=== PATIENT | male | born 1955 | race Caucasian/White ===

== ENCOUNTER 2016-09-22 22:08 | Emergency (ER) | payer OTHER ==
[~2016-09-22] VITALS: Ht 177.8 cm; Wt 99.8 kg
[~2016-09-22 22:08] MED LIST: ACETAMINOPHEN-1 EAC1 PO; B-1100 MG PO; CAMPRAL333 MG PO; CARDIZEM CD,CA240 MG PO; CARVEDILOL25 MG PO; CELEXA20 MG PO; CELEXA40 MG PO; CHLORDIAZEPOXID25 MG PO; CITALOPRAM HBR20 MG PO; CLONIDINE HCL0.1 MG PO; CYCLOBENZAPRINE 10 M; DESYREL100 MG PO; DISULFIRAM250 MG PO; DOXYCYCLINE HY100 MG PO; FLECAINIDE ACET50 MG PO; FLEXERIL10 MG PO; FOLIC ACID1 MG PO; IBUPROFEN400 MG PO; LEVO-T100 MCG PO; LEVOTHYROXINE100 MCG; LEVOTHYROXINE100 MCG PO; LIBRIUM25 MG PO; LISINOPRIL10 MG PO; LISINOPRIL5 MG PO; LOPRESSOR25 MG PO; Levothroid,Synthroid PO; MELOXICAM15 MG PO; METOPROLOL; METOPROLOL SUCC25 MG PO; METOPROLOL SUCC50 MG PO; METOPROLOL TART25 MG PO; MOBIC15 MG PO; MOBIC7.5 MG PO; Mobic; PREDNISONE10 MG PO; STOMACH MEDICATION; SYNTHROID; SYNTHROID100 MCG PO; THERAGRAN1 TABLET PO; THIAMINE,VITAM100 MG PO; TOPROL XL25 MG PO; TYLENOL WITH C1 EACH; Thiamine,Vitamin B1 PO; VITAMIN B-1100 MG PO; VITAMIN D31000 UNIT PO; XARELTO15 MG PO; XARELTO20 MG PO; ZYVOX600 MG PO; [UNRECOGNIZED DRUG - REMARK]; celeXA PO
[2016-09-23 01:39] VITALS: BP 127/89
== END 2016-09-23 01:40 | disposition home or self-care (01) ==
LOC: EME → EDBD 22:08 → EME 22:08
PROC: 3E0234Z Introduction of Serum, Toxoid and Vaccine into Muscle, Percutaneous Approach (ICD-10-PCS; principal; 2016-09-22)
DX: S00.81XA Abrasion of other part of head, initial encounter (principal); M54.2 Cervicalgia; Y04.2XXA Assault by strike against or bumped into by another person, initial encounter; Y07.59 Other non-family member, perpetrator of maltreatment and neglect; Z23 Encounter for immunization; I10 Essential (primary) hypertension; E03.9 Hypothyroidism, unspecified; Z87.891 Personal history of nicotine dependence
CPT/HCPCS: 70450; 72125; 99281; 99284

== ENCOUNTER 2016-11-21 10:43 | Observation (INO) | payer OTHER ==
[~2016-11-21] VITALS: Ht 177.8 cm; Wt 95.1 kg
[2016-11-21 11:18] LABS: HEMATOCRIT 44.2 % (38.0-50.0); MCHC 33.7 G/DL (30.0-36.0); MEAN PLAT.VOLUME 9.4 uM^3 (9.0-12.4); RBC DIS.WIDTH-CV 13.1 % (11.8-14.6); RBC DIS.WIDTH-SD 47.6 % (39-53); RED BLOOD COUNT 4.51 M/uL (4.00-5.50); WHITE BLOOD COUNT 5.9 K/uL (4.1-10.2)
[2016-11-21 11:27] LABS: PLATELET COUNT 364 K/uL (156-360)
[2016-11-21 11:50] LABS: ANION GAP 14 MEQ/L (2-14); CHLORIDE 102 MEQ/L (99-109); GFR ESTIMATE (CALCULATED) > 59 mL/min/; GLUCOSE 79 mg/dL (70-99); POTASSIUM 4.2 MEQ/L (3.7-5.4); SAMPLE HEMOLYSIS CHECK 0; SAMPLE ICTERIC CHECK 0; SAMPLE LIPEMIA CHECK 0; SODIUM 140 MEQ/L (136-147); TROP-I INTERPRETATION NEGATIVE; TROPONIN-I < 0.01 ng/mL (0.0-0.30); UREA NITROGEN (BUN) 8 mg/dL (9-23)
[2016-11-21 12:41] LABS: SERUM ETHYL ALCOHOL 358 mg/dL
[2016-11-21] MEDS ORDERED: MOBIC15 MG PO (13:30)
[2016-11-21] MEDS ORDERED: CELEXA40 MG PO (13:30)
[2016-11-21 14:00] VITALS: BP 156/88
[2016-11-21 18:00] LABS: TROP-I INTERPRETATION NEGATIVE; TROPONIN-I < 0.01 ng/mL (0.0-0.30)
[2016-11-21 21:00] VITALS: BP 132/84
[2016-11-21 23:37] LABS: TROP-I INTERPRETATION NEGATIVE; TROPONIN-I < 0.01 ng/mL (0.0-0.30)
[2016-11-22 00:55] VITALS: BP 164/98
== END 2016-11-22 10:36 | disposition home or self-care (01) ==
LOC: EME → EDBD 10:43 → EDOF 12:41 → 5WEST 12:41 → EDOF 13:18 → 5WEST 13:44
PROVIDERS: Emergency Medicine; Nurse Practitioner Family
DX: R07.9 Chest pain, unspecified (principal); R55 Syncope and collapse; F10.120 Alcohol abuse with intoxication, uncomplicated; Y90.8 Blood alcohol level of 240 mg/100 ml or more; I48.91 Unspecified atrial fibrillation; E03.9 Hypothyroidism, unspecified; I10 Essential (primary) hypertension
CPT/HCPCS: 71010; 80048; 83735; 84443; 84484; 85027; 93005; 99281; 99285; G0378; G0480

== ENCOUNTER 2017-01-29 13:46 | Emergency (ER) | payer OTHER ==
[~2017-01-29] VITALS: Ht 177.8 cm; Wt 100.0 kg
[2017-01-29 14:28] LABS: EOSINOPHIL (%) 5.4 % (0-5); EOSINOPHIL COUNT 0.3 K/uL (0-0.3); HEMATOCRIT 36.8 % (38.0-50.0); IMMATURE GRANULOCYTE (%) 0.2 % (0.0-0.7); LYMPHOCYTE COUNT 1.5 K/uL (1.0-2.8); MCHC 33.7 G/DL (30.0-36.0); MCV 97.9 FL (86-99); MONOCYTE (%) 10.7 % (3-12); MONOCYTE COUNT 0.6 K/uL (0-0.8); NEUTROPHIL (%) 55.3 % (45-76); PLATELET COUNT 261 K/uL (156-360); RBC DIS.WIDTH-SD 43.4 % (39-53); RED BLOOD COUNT 3.76 M/uL (4.00-5.50); WHITE BLOOD COUNT 5.4 K/uL (4.1-10.2)
[2017-01-29 14:38] LABS: CHLORIDE 102 mEq/L (99-109); POTASSIUM 3.9 mEq/L (3.7-5.4); SODIUM 133 mEq/L (136-147)
[2017-01-29 14:40] LABS: GLUCOSE 81 mg/dL (70-99)
[2017-01-29 14:42] LABS: ANION GAP 9 MEQ/L (2-14)
[2017-01-29 14:43] LABS: SERUM ETHYL ALCOHOL 328 mg/dL
[2017-01-29 14:44] LABS: GFR ESTIMATE (CALCULATED) > 59 mL/min/
[2017-01-29 14:46] LABS: UREA NITROGEN (BUN) 13 mg/dL (9-23)
[2017-01-29 14:47] LABS: SALICYLATE < 5.0 MG/DL (15-30)
[2017-01-29 17:44] LABS: AMPHETAMINE NEGATIVE (500 ng/mL); BARBITURATES NEGATIVE (200 ng/mL); BENZODIAZEPINES NEGATIVE (150 ng/mL); COCAINE NEGATIVE (150 ng/mL); INTERNAL CONTROLS VALID? YES; METHADONE NEGATIVE (200 ng/mL); METHAMPHETAMINE NEGATIVE (500 ng/mL); OPIATES (MORPHINE) NEGATIVE (100 ng/mL); OXYCODONE NEGATIVE (100 ng/mL); PHENCYCLIDINE NEGATIVE (25 ng/mL); PROPOXYPHENE NEGATIVE (300 ng/mL); THC CANNABINOIDS NEGATIVE (50 ng/mL); TRICYCLIC ANTIDEPRESSANTS NEGATIVE (300 ng/mL)
[2017-01-29 21:34] VITALS: BP 110/68
== END 2017-01-29 21:35 | disposition home or self-care (01) ==
LOC: EME 13:46
PROVIDERS: Emergency Medicine
DX: F10.129 Alcohol abuse with intoxication, unspecified (principal); F32.9 Major depressive disorder, single episode, unspecified; R09.02 Hypoxemia; I10 Essential (primary) hypertension; K21.9 Gastro-esophageal reflux disease without esophagitis; I48.91 Unspecified atrial fibrillation; Z79.01 Long term (current) use of anticoagulants; Z59.0 Homelessness; Z86.73 Personal history of transient ischemic attack (TIA), and cerebral infarction without residual deficits
CPT/HCPCS: 80048; 85025; 99281; 99284; G0480

== ENCOUNTER 2017-01-31 12:02 | Inpatient (IN) | payer OTHER ==
[~2017-01-31] VITALS: Ht 177.8 cm; Wt 98.9 kg
[2017-01-31 13:32] LABS: BASOPHIL COUNT 0.1 K/uL (0-0.1); EOSINOPHIL (%) 4.3 % (0-5); EOSINOPHIL COUNT 0.3 K/uL (0-0.3); HEMATOCRIT 41.1 % (38.0-50.0); IMMATURE GRANULOCYTE (%) 0.6 % (0.0-0.7); INSTRUMENT ABS NEUTROPHIL CT 4.4 K/uL; LYMPHOCYTE COUNT 1.7 K/uL (1.0-2.8); MCHC 33.1 G/DL (30.0-36.0); MCV 99.8 FL (86-99); MEAN PLAT.VOLUME 9.8 uM^3 (9.0-12.4); MONOCYTE (%) 7.6 % (3-12); MONOCYTE COUNT 0.5 K/uL (0-0.8); NEUTROPHIL (%) 62.7 % (45-76); NEUTROPHIL COUNT 4.4 K/uL (1.8-6.4); PLATELET COUNT 307 K/uL (156-360); RBC DIS.WIDTH-CV 12.3 % (11.8-14.6); RBC DIS.WIDTH-SD 45.6 % (39-53); RED BLOOD COUNT 4.12 M/uL (4.00-5.50)
[2017-01-31 13:45] LABS: CHLORIDE 103 mEq/L (99-109); SODIUM 138 mEq/L (136-147)
[2017-01-31 13:48] LABS: ANION GAP 11 MEQ/L (2-14)
[2017-01-31 13:50] LABS: TROP-I INTERPRETATION NEGATIVE; TROPONIN-I < 0.01 ng/mL (0.0-0.30)
[2017-01-31 13:51] LABS: GFR ESTIMATE (CALCULATED) > 59 mL/min/; GLUCOSE 114 mg/dL (70-99); POTASSIUM 4.8 mEq/L (3.7-5.4)
[2017-01-31 13:52] LABS: UREA NITROGEN (BUN) 16 mg/dL (9-23)
[2017-01-31 17:55] LABS: SERUM ETHYL ALCOHOL 306 mg/dL
[2017-01-31 18:00] VITALS: BP 126/81
[2017-01-31 18:58] LABS: MAGNESIUM 2.5 mg/dL (1.3-2.7)
[2017-01-31 19:01] LABS: TOTAL BILIRUBIN 0.5 mg/dL (0.0-1.0)
[2017-01-31 19:03] LABS: ALKALINE PHOSPHATASE 67 IU/L (3-129)
[2017-01-31 19:05] LABS: DIRECT BILIRUBIN 0.1 mg/dL (0.0-0.3)
== END 2017-01-31 20:20 | disposition left against medical advice (07) | DRG 894 ==
LOC: EME 12:02 → EDOF 18:03
PROVIDERS: Emergency Medicine
DX: F10.229 Alcohol dependence with intoxication, unspecified (principal); I48.92 Unspecified atrial flutter; E86.0 Dehydration; I10 Essential (primary) hypertension; I48.2 Chronic atrial fibrillation; F17.210 Nicotine dependence, cigarettes, uncomplicated; E03.9 Hypothyroidism, unspecified; K21.9 Gastro-esophageal reflux disease without esophagitis; F41.9 Anxiety disorder, unspecified; Z59.0 Homelessness; Z80.0 Family history of malignant neoplasm of digestive organs; Z82.5 Family history of asthma and other chronic lower respiratory diseases; Z86.711 Personal history of pulmonary embolism; Z86.73 Personal history of transient ischemic attack (TIA), and cerebral infarction without residual deficits; Z91.14 Patient's other noncompliance with medication regimen; Z91.19 Patient's noncompliance with other medical treatment and regimen; Z79.01 Long term (current) use of anticoagulants
CPT/HCPCS: 70450; 71010; 80048; 80076; 80306 90; 83735; 84484; 85025; 93005; 99281; 99285; G0480

== ENCOUNTER 2017-02-01 13:14 | Emergency (ER) | payer OTHER ==
[~2017-02-01] VITALS: Ht 177.8 cm; Wt 98.2 kg
[2017-02-01 14:07] LABS: BASOPHIL COUNT 0.1 K/uL (0-0.1); EOSINOPHIL (%) 4.2 % (0-5); EOSINOPHIL COUNT 0.3 K/uL (0-0.3); HEMATOCRIT 37.1 % (38.0-50.0); IMMATURE GRANULOCYTE (%) 0.7 % (0.0-0.7); INSTRUMENT ABS NEUTROPHIL CT 3.4 K/uL; LYMPHOCYTE COUNT 1.7 K/uL (1.0-2.8); MCHC 33.7 G/DL (30.0-36.0); MCV 97.9 FL (86-99); MEAN PLAT.VOLUME 9.9 uM^3 (9.0-12.4); MONOCYTE COUNT 0.6 K/uL (0-0.8); NEUTROPHIL (%) 55.8 % (45-76); NEUTROPHIL COUNT 3.4 K/uL (1.8-6.4); PLATELET COUNT 279 K/uL (156-360); RBC DIS.WIDTH-CV 12.4 % (11.8-14.6); RBC DIS.WIDTH-SD 44.8 % (39-53); RED BLOOD COUNT 3.79 M/uL (4.00-5.50)
[2017-02-01 14:17] LABS: CHLORIDE 101 mEq/L (99-109); SODIUM 135 mEq/L (136-147)
[2017-02-01 14:19] LABS: GLUCOSE 110 mg/dL (70-99)
[2017-02-01 14:20] LABS: ANION GAP 11 MEQ/L (2-14)
[2017-02-01 14:22] LABS: SERUM ETHYL ALCOHOL 249 mg/dL
[2017-02-01 14:23] LABS: GFR ESTIMATE (CALCULATED) > 59 mL/min/
[2017-02-01 14:24] LABS: UREA NITROGEN (BUN) 11 mg/dL (9-23)
[2017-02-01 14:31] LABS: ADD MIUA? NO; BILIRUBIN NEGATIVE; BLOOD NEGATIVE; COLOR STRAW ((YELLOW)); GLUCOSE (STRIP) NEGATIVE; KETONES NEGATIVE; LEUKOCYTES NEGATIVE; NITRITE NEGATIVE; PROTEIN (STRIP) NEGATIVE; SPECIFIC GRAVITY 1.006 (1.000-1.030); UROBILINOGEN 0.2 MG/DL (0.2-1.0)
[2017-02-01 14:54] LABS: AMPHETAMINE NEGATIVE (500 ng/mL); BARBITURATES NEGATIVE (200 ng/mL); BENZODIAZEPINES NEGATIVE (150 ng/mL); COCAINE NEGATIVE (150 ng/mL); INTERNAL CONTROLS VALID? YES; METHADONE NEGATIVE (200 ng/mL); METHAMPHETAMINE NEGATIVE (500 ng/mL); OPIATES (MORPHINE) NEGATIVE (100 ng/mL); OXYCODONE NEGATIVE (100 ng/mL); PHENCYCLIDINE NEGATIVE (25 ng/mL); PROPOXYPHENE NEGATIVE (300 ng/mL); THC CANNABINOIDS NEGATIVE (50 ng/mL); TRICYCLIC ANTIDEPRESSANTS NEGATIVE (300 ng/mL)
[2017-02-01 21:33] VITALS: BP 128/89
== END 2017-02-01 21:34 | disposition home or self-care (01) ==
LOC: EME 13:14
PROVIDERS: Emergency Medicine
DX: F32.9 Major depressive disorder, single episode, unspecified (principal); R45.851 Suicidal ideations; F10.129 Alcohol abuse with intoxication, unspecified; Y90.8 Blood alcohol level of 240 mg/100 ml or more; Z59.0 Homelessness; I10 Essential (primary) hypertension; F17.200 Nicotine dependence, unspecified, uncomplicated; Z86.73 Personal history of transient ischemic attack (TIA), and cerebral infarction without residual deficits
CPT/HCPCS: 80048; 81003; 85025; 90839; 99281; 99284; G0480

== ENCOUNTER 2017-02-05 09:24 | Emergency (ER) | payer OTHER ==
[~2017-02-05] VITALS: Ht 177.8 cm; Wt 102.9 kg
[2017-02-05 15:20] LABS: HEMATOCRIT 39.7 % (38.0-50.0); MCH 32.8 PG (29.0-34.0); MCHC 33.2 G/DL (30.0-36.0); MCV 98.5 FL (86-99); MEAN PLAT.VOLUME 9.7 uM^3 (9.0-12.4); PLATELET COUNT 203 K/uL (156-360); RBC DIS.WIDTH-CV 12.3 % (11.8-14.6); RBC DIS.WIDTH-SD 44.8 % (39-53); RED BLOOD COUNT 4.03 M/uL (4.00-5.50); WHITE BLOOD COUNT 4.3 K/uL (4.1-10.2)
[2017-02-05 15:28] LABS: CHLORIDE 106 mEq/L (99-109); SODIUM 139 mEq/L (136-147)
[2017-02-05 15:30] VITALS: BP 105/80
[2017-02-05 15:30] LABS: GLUCOSE 81 mg/dL (70-99)
[2017-02-05 15:31] LABS: ANION GAP 12 MEQ/L (2-14)
[2017-02-05 15:33] LABS: SERUM ETHYL ALCOHOL 194 mg/dL
[2017-02-05 15:34] LABS: GFR ESTIMATE (CALCULATED) > 59 mL/min/; UREA NITROGEN (BUN) 8 mg/dL (9-23)
== END 2017-02-05 18:05 | disposition home or self-care (01) ==
LOC: EME 09:24
PROVIDERS: Emergency Medicine
DX: F32.9 Major depressive disorder, single episode, unspecified (principal); F10.129 Alcohol abuse with intoxication, unspecified; I10 Essential (primary) hypertension; K21.9 Gastro-esophageal reflux disease without esophagitis; E03.9 Hypothyroidism, unspecified; Z86.73 Personal history of transient ischemic attack (TIA), and cerebral infarction without residual deficits; F17.200 Nicotine dependence, unspecified, uncomplicated
CPT/HCPCS: 80048; 85027; 99281; 99283; G0480

== ENCOUNTER 2017-02-07 10:38 | Observation (INO) | payer OTHER ==
[~2017-02-07] VITALS: Ht 177.8 cm; Wt 98.6 kg
[2017-02-07 11:58] LABS: BASOPHIL COUNT 0.1 K/uL (0-0.1); EOSINOPHIL (%) 4.6 % (0-5); EOSINOPHIL COUNT 0.2 K/uL (0-0.3); IMMATURE GRANULOCYTE (%) 0.2 % (0.0-0.7); INSTRUMENT ABS NEUTROPHIL CT 2.9 K/uL; MCH 33.2 PG (29.0-34.0); MCHC 33.5 G/DL (30.0-36.0); MCV 99.2 FL (86-99); MEAN PLAT.VOLUME 9.8 uM^3 (9.0-12.4); MONOCYTE (%) 8.4 % (3-12); MONOCYTE COUNT 0.4 K/uL (0-0.8); NEUTROPHIL (%) 63.5 % (45-76); NEUTROPHIL COUNT 2.9 K/uL (1.8-6.4); PLATELET COUNT 179 K/uL (156-360); RBC DIS.WIDTH-CV 12.4 % (11.8-14.6); RBC DIS.WIDTH-SD 45.2 % (39-53); RED BLOOD COUNT 3.73 M/uL (4.00-5.50); WHITE BLOOD COUNT 4.5 K/uL (4.1-10.2)
[2017-02-07 12:06] LABS: PROTHROMBIN TIME 10.3 (9.2-11.2); PTT 27.5 (25-32)
[2017-02-07 12:12] LABS: CHLORIDE 105 mEq/L (99-109); POTASSIUM 4.1 mEq/L (3.7-5.4); SODIUM 134 mEq/L (136-147)
[2017-02-07 12:16] LABS: ANION GAP 9 MEQ/L (2-14)
[2017-02-07 12:17] LABS: SERUM ETHYL ALCOHOL 249 mg/dL
[2017-02-07 12:18] LABS: GFR ESTIMATE (CALCULATED) > 59 mL/min/
[2017-02-07 12:19] LABS: GLUCOSE 116 mg/dL (70-99); MAGNESIUM 1.9 mg/dL (1.3-2.7); UREA NITROGEN (BUN) 10 mg/dL (9-23)
[2017-02-07 12:22] LABS: TROP-I INTERPRETATION NEGATIVE; TROPONIN-I < 0.01 ng/mL (0.0-0.30)
[2017-02-07] MEDS ORDERED: HYDROCODON-ACE1 EAC7 PO (15:58)
[2017-02-07] MEDS ORDERED: CETIRIZINE HCL10 M2 PO (15:58)
[2017-02-07] MEDS ORDERED: FLONASE16 G1 BOTH NARES (15:58)
[2017-02-07 18:09] VITALS: BP 137/83
[2017-02-07 18:12] VITALS: BP 114/86
[2017-02-07 18:14] VITALS: BP 107/72
[2017-02-07 19:32] VITALS: BP 127/96; BP 128/88
[2017-02-07 19:42] VITALS: BP 128/88
[2017-02-07 22:37] LABS: TROP-I INTERPRETATION NEGATIVE; TROPONIN-I < 0.01 ng/mL (0.0-0.30)
[2017-02-08 00:34] VITALS: BP 142/94
[2017-02-08 04:23] LABS: EOSINOPHIL (%) 5.1 % (0-5); EOSINOPHIL COUNT 0.2 K/uL (0-0.3); HEMATOCRIT 39.2 % (38.0-50.0); IMMATURE GRANULOCYTE (%) 0.2 % (0.0-0.7); INSTRUMENT ABS NEUTROPHIL CT 2.5 K/uL; LYMPHOCYTE COUNT 0.9 K/uL (1.0-2.8); MCH 32.8 PG (29.0-34.0); MCHC 33.9 G/DL (30.0-36.0); MCV 96.8 FL (86-99); MEAN PLAT.VOLUME 10.1 uM^3 (9.0-12.4); MONOCYTE (%) 14.3 % (3-12); MONOCYTE COUNT 0.6 K/uL (0-0.8); NEUTROPHIL (%) 58.5 % (45-76); NEUTROPHIL COUNT 2.5 K/uL (1.8-6.4); PLATELET COUNT 198 K/uL (156-360); RBC DIS.WIDTH-CV 12.2 % (11.8-14.6); RBC DIS.WIDTH-SD 43.5 % (39-53); RED BLOOD COUNT 4.05 M/uL (4.00-5.50); WHITE BLOOD COUNT 4.3 K/uL (4.1-10.2)
[2017-02-08 04:43] LABS: CHLORIDE 102 mEq/L (99-109); SODIUM 136 mEq/L (136-147)
[2017-02-08 04:46] LABS: GLUCOSE 93 mg/dL (70-99)
[2017-02-08 04:47] LABS: ANION GAP 10 MEQ/L (2-14); TOTAL BILIRUBIN 1.2 mg/dL (0.0-1.0)
[2017-02-08 04:49] LABS: ALKALINE PHOSPHATASE 80 IU/L (3-129); GFR ESTIMATE (CALCULATED) > 59 mL/min/
[2017-02-08 04:50] VITALS: BP 156/95
[2017-02-08 04:50] LABS: TROP-I INTERPRETATION NEGATIVE; TROPONIN-I < 0.01 ng/mL (0.0-0.30); UREA NITROGEN (BUN) 14 mg/dL (9-23)
[2017-02-08 04:51] LABS: DIRECT BILIRUBIN 0.5 mg/dL (0.0-0.3)
[2017-02-08 08:40] VITALS: BP 172/101
[2017-02-08 11:08] LABS: TROP-I INTERPRETATION NEGATIVE; TROPONIN-I < 0.01 ng/mL (0.0-0.30)
[2017-02-08 11:33] VITALS: BP 144/99
[2017-02-08] MEDS ORDERED: ZITHROMAX Z-PA250 MG PO (12:34)
[2017-02-08] MEDS ORDERED: CARDIZEM CD240 MG PO (14:38)
== END 2017-02-08 15:17 | disposition home or self-care (01) ==
LOC: EME 10:38 → 5WEST 16:42 → EDOF 16:42 → 5WEST 18:05
PROVIDERS: Emergency Medicine; Internal Medicine
DX: R42 Dizziness and giddiness (principal); R55 Syncope and collapse; R06.02 Shortness of breath; R53.1 Weakness; I48.2 Chronic atrial fibrillation; I10 Essential (primary) hypertension; E03.9 Hypothyroidism, unspecified; F32.9 Major depressive disorder, single episode, unspecified; Z79.01 Long term (current) use of anticoagulants; Z86.711 Personal history of pulmonary embolism; F10.20 Alcohol dependence, uncomplicated; Z59.0 Homelessness; F41.9 Anxiety disorder, unspecified; K21.9 Gastro-esophageal reflux disease without esophagitis
CPT/HCPCS: 70551; 71010; 71275; 80048; 80076; 83735; 84443; 84484; 85025; 85610; 85730; 87040; 93005; 93306; 93880; 99281; 99285; G0378; G0480; J1956; J3411; J7030

== ENCOUNTER 2017-02-11 22:58 | Emergency (ER) | payer OTHER ==
[~2017-02-11] VITALS: Ht 177.8 cm; Wt 102.2 kg
[~2017-02-11 22:58] MED LIST changes: +CARDIZEM CD240 MG PO; +CETIRIZINE HCL10 M2 PO; +FLONASE16 G1 BOTH NARES; +HYDROCODON-ACE1 EAC7 PO; +ZITHROMAX Z-PA250 MG PO
[2017-02-11 23:10] VITALS: BP 108/84
== END 2017-02-12 00:40 | disposition left against medical advice (07) ==
LOC: EME 22:58
DX: F10.129 Alcohol abuse with intoxication, unspecified (principal); I10 Essential (primary) hypertension; K21.9 Gastro-esophageal reflux disease without esophagitis; E03.9 Hypothyroidism, unspecified; R56.9 Unspecified convulsions; F32.9 Major depressive disorder, single episode, unspecified; Z86.73 Personal history of transient ischemic attack (TIA), and cerebral infarction without residual deficits; F17.200 Nicotine dependence, unspecified, uncomplicated
CPT/HCPCS: 99281; 99283

== ENCOUNTER 2017-02-14 11:06 | Emergency (ER) | payer OTHER ==
[~2017-02-14] VITALS: Ht 177.8 cm; Wt 98.2 kg
[2017-02-14 12:09] VITALS: BP 117/80
== END 2017-02-14 14:27 | disposition left against medical advice (07) ==
LOC: EME 11:06
DX: R45.851 Suicidal ideations (principal); Z53.21 Procedure and treatment not carried out due to patient leaving prior to being seen by health care provider
CPT/HCPCS: 93005

== ENCOUNTER 2017-02-14 18:55 | Emergency (ER) | payer OTHER ==
[~2017-02-14] VITALS: Ht 177.8 cm; Wt 99.7 kg
[2017-02-14 19:35] LABS: BASOPHIL COUNT 0.1 K/uL (0-0.1); EOSINOPHIL (%) 5.8 % (0-5); EOSINOPHIL COUNT 0.3 K/uL (0-0.3); HEMATOCRIT 34.5 % (38.0-50.0); IMMATURE GRANULOCYTE (%) 0.2 % (0.0-0.7); LYMPHOCYTE COUNT 1.5 K/uL (1.0-2.8); MCH 32.6 PG (29.0-34.0); MCHC 33.3 G/DL (30.0-36.0); MCV 97.7 FL (86-99); MEAN PLAT.VOLUME 9.5 uM^3 (9.0-12.4); MONOCYTE (%) 10.2 % (3-12); MONOCYTE COUNT 0.6 K/uL (0-0.8); PLATELET COUNT 200 K/uL (156-360); RBC DIS.WIDTH-SD 46.3 % (39-53); RED BLOOD COUNT 3.53 M/uL (4.00-5.50); WHITE BLOOD COUNT 5.4 K/uL (4.1-10.2)
[2017-02-14 19:50] LABS: CHLORIDE 106 mEq/L (99-109); POTASSIUM 3.8 mEq/L (3.7-5.4); SODIUM 140 mEq/L (136-147)
[2017-02-14 19:52] LABS: GLUCOSE 82 mg/dL (70-99)
[2017-02-14 19:53] LABS: ANION GAP 12 MEQ/L (2-14)
[2017-02-14 19:55] LABS: SERUM ETHYL ALCOHOL 347 mg/dL
[2017-02-14 19:56] LABS: GFR ESTIMATE (CALCULATED) > 59 mL/min/; UREA NITROGEN (BUN) 9 mg/dL (9-23)
[2017-02-15 08:18] VITALS: BP 122/87
== END 2017-02-15 08:35 | disposition home or self-care (01) ==
LOC: EME 18:55
PROVIDERS: Emergency Medicine
DX: F10.229 Alcohol dependence with intoxication, unspecified (principal); F32.9 Major depressive disorder, single episode, unspecified; R45.851 Suicidal ideations; F34.1 Dysthymic disorder; Y90.8 Blood alcohol level of 240 mg/100 ml or more; E03.9 Hypothyroidism, unspecified; I10 Essential (primary) hypertension; Z87.891 Personal history of nicotine dependence
CPT/HCPCS: 80048; 85025; 90839; 99281; 99285; G0480; J2405; J7030

== ENCOUNTER 2017-02-16 12:56 | Emergency (ER) | payer OTHER ==
[~2017-02-16] VITALS: Ht 177.8 cm; Wt 100.5 kg
[2017-02-16 13:04] VITALS: BP 103/88
[2017-02-16 14:43] LABS: POINT-OF-CARE METER ID UU13113702; POINT-OF-CARE USER ID NUTJLF39
== END 2017-02-16 16:10 | disposition left against medical advice (07) ==
LOC: EME 12:56
PROVIDERS: Emergency Medicine
DX: F10.129 Alcohol abuse with intoxication, unspecified (principal); I10 Essential (primary) hypertension; E03.9 Hypothyroidism, unspecified; Z87.891 Personal history of nicotine dependence
CPT/HCPCS: 82948; 99281; 99283

== ENCOUNTER → 2017-02-17 12:41 | Emergency (ER) | payer OTHER ==
[~2017-02-17] VITALS: Ht 177.8 cm; Wt 101.8 kg
[~2017-02-17 12:41] MED LIST changes: +PEN-VEE K,VEET500 MG PO
[2017-02-17 12:49] VITALS: BP 121/83
== END | disposition left against medical advice (07) ==
LOC: EME 12:41
DX: Z04.71 Encounter for examination and observation following alleged adult physical abuse (principal); S01.21XA Laceration without foreign body of nose, initial encounter; Y04.2XXA Assault by strike against or bumped into by another person, initial encounter; F10.99 Alcohol use, unspecified with unspecified alcohol-induced disorder; Z79.01 Long term (current) use of anticoagulants; Z53.21 Procedure and treatment not carried out due to patient leaving prior to being seen by health care provider

== ENCOUNTER 2017-02-19 16:19 | Emergency (ER) | payer OTHER ==
[~2017-02-19] VITALS: Ht 177.8 cm; Wt 88.9 kg
[~2017-02-19 16:19] MED LIST changes: -PEN-VEE K,VEET500 MG PO
[2017-02-19 18:08] LABS: HEMATOCRIT 34.9 % (38.0-50.0); MCH 32.8 PG (29.0-34.0); MCV 99.4 FL (86-99); MEAN PLAT.VOLUME 9.2 uM^3 (9.0-12.4); PLATELET COUNT 234 K/uL (156-360); RBC DIS.WIDTH-CV 13.3 % (11.8-14.6); RED BLOOD COUNT 3.51 M/uL (4.00-5.50); WHITE BLOOD COUNT 4.3 K/uL (4.1-10.2)
[2017-02-19 18:15] LABS: CHLORIDE 107 mEq/L (99-109); POTASSIUM 4.2 mEq/L (3.7-5.4); SODIUM 142 mEq/L (136-147)
[2017-02-19 18:18] LABS: GLUCOSE 77 mg/dL (70-99)
[2017-02-19 18:19] LABS: ANION GAP 10 MEQ/L (2-14)
[2017-02-19 18:20] LABS: TOTAL BILIRUBIN 0.4 mg/dL (0.0-1.0)
[2017-02-19 18:21] LABS: ALKALINE PHOSPHATASE 95 IU/L (3-129); SERUM ETHYL ALCOHOL 242 mg/dL
[2017-02-19 18:22] LABS: GFR ESTIMATE (CALCULATED) > 59 mL/min/
[2017-02-19 18:23] LABS: UREA NITROGEN (BUN) 10 mg/dL (9-23)
[2017-02-19 18:45] LABS: ADD MIUA? NO; BILIRUBIN NEGATIVE; BLOOD NEGATIVE; COLOR STRAW ((YELLOW)); GLUCOSE (STRIP) NEGATIVE; KETONES NEGATIVE; LEUKOCYTES NEGATIVE; NITRITE NEGATIVE; PROTEIN (STRIP) NEGATIVE; SPECIFIC GRAVITY 1.004 (1.000-1.030); UROBILINOGEN 0.2 MG/DL (0.2-1.0)
[2017-02-19 19:04] LABS: ADD MEDTOX COMMENT Y; AMPHETAMINE NEGATIVE (500 ng/mL); BARBITURATES NEGATIVE (200 ng/mL); BENZODIAZEPINES PRESUMPTIVE POSITIVE (150 ng/mL); COCAINE NEGATIVE (150 ng/mL); INTERNAL CONTROLS VALID? YES; METHADONE NEGATIVE (200 ng/mL); METHAMPHETAMINE NEGATIVE (500 ng/mL); OPIATES (MORPHINE) NEGATIVE (100 ng/mL); OXYCODONE NEGATIVE (100 ng/mL); PHENCYCLIDINE NEGATIVE (25 ng/mL); PROPOXYPHENE NEGATIVE (300 ng/mL); THC CANNABINOIDS NEGATIVE (50 ng/mL); TRICYCLIC ANTIDEPRESSANTS NEGATIVE (300 ng/mL)
[2017-02-19 19:32] LABS: BENZODIAZEPINES QUANT VALUE 0 NG/ML; BENZODIAZEPINES, URINE SCREEN Negative (200 ng/mL)
[2017-02-20 00:38] VITALS: BP 131/107
== END 2017-02-20 00:47 | disposition home or self-care (01) ==
LOC: EME 16:19
PROVIDERS: Emergency Medicine
DX: F10.129 Alcohol abuse with intoxication, unspecified (principal); Y90.8 Blood alcohol level of 240 mg/100 ml or more; R45.851 Suicidal ideations; I10 Essential (primary) hypertension; K21.9 Gastro-esophageal reflux disease without esophagitis; Z86.73 Personal history of transient ischemic attack (TIA), and cerebral infarction without residual deficits; Z87.891 Personal history of nicotine dependence; Z59.0 Homelessness
CPT/HCPCS: 80053; 81003; 84999; 85027; 90839; 99281; 99285; G0480

== ENCOUNTER 2017-02-22 21:14 | Emergency (ER) | payer OTHER ==
[~2017-02-22] VITALS: Ht 177.8 cm; Wt 95.4 kg
[2017-02-22 22:17] LABS: HEMATOCRIT 34.3 % (38.0-50.0); MCHC 33.5 G/DL (30.0-36.0); MCV 98.6 FL (86-99); MEAN PLAT.VOLUME 9.3 uM^3 (9.0-12.4); PLATELET COUNT 218 K/uL (156-360); RBC DIS.WIDTH-CV 13.2 % (11.8-14.6); RBC DIS.WIDTH-SD 47.4 % (39-53); RED BLOOD COUNT 3.48 M/uL (4.00-5.50)
[2017-02-22 22:28] LABS: CHLORIDE 102 mEq/L (99-109); POTASSIUM 3.9 mEq/L (3.7-5.4)
[2017-02-22 22:30] LABS: GLUCOSE 108 mg/dL (70-99)
[2017-02-22 22:31] LABS: ANION GAP 10 MEQ/L (2-14)
[2017-02-22 22:33] LABS: GFR ESTIMATE (CALCULATED) > 59 mL/min/
[2017-02-22 22:34] LABS: UREA NITROGEN (BUN) 10 mg/dL (9-23)
[2017-02-22 22:37] LABS: SODIUM 134 mEq/L (136-147)
[2017-02-23] MEDS ORDERED: PEN-VEE K,VEET500 MG PO (03:00)
[2017-02-23 03:08] VITALS: BP 115/84
[2017-02-24] MEDS ORDERED: PEN-VEE K,VEET500 MG PO (19:36)
== END 2017-02-23 03:12 | disposition home or self-care (01) ==
LOC: EME 21:14
PROVIDERS: Physician Assistant
DX: F10.229 Alcohol dependence with intoxication, unspecified (principal); F32.9 Major depressive disorder, single episode, unspecified; Z59.0 Homelessness; Z87.891 Personal history of nicotine dependence; I10 Essential (primary) hypertension; Z86.73 Personal history of transient ischemic attack (TIA), and cerebral infarction without residual deficits; E03.9 Hypothyroidism, unspecified; F19.10 Other psychoactive substance abuse, uncomplicated; J30.1 Allergic rhinitis due to pollen; I48.91 Unspecified atrial fibrillation
CPT/HCPCS: 80048; 81003; 85027; 99281; 99284; G0480

== ENCOUNTER 2017-02-23 15:48 | Emergency (ER) | payer OTHER ==
[~2017-02-23] VITALS: Ht 177.8 cm; Wt 97.7 kg
[~2017-02-23 15:48] MED LIST changes: +PEN-VEE K,VEET500 MG PO
[2017-02-23 16:11] VITALS: BP 103/75
[2017-02-24] MEDS ORDERED: PEN-VEE K,VEET500 MG PO (19:36)
== END 2017-02-23 17:58 | disposition left against medical advice (07) ==
LOC: EME 15:48
DX: K08.89 Other specified disorders of teeth and supporting structures (principal); Z72.89 Other problems related to lifestyle
CPT/HCPCS: 99281; 99283

== ENCOUNTER 2017-02-24 18:37 | Emergency (ER) | payer OTHER ==
[~2017-02-24] VITALS: Ht 177.8 cm; Wt 100.0 kg
[2017-02-24] MEDS ORDERED: PEN-VEE K,VEET500 MG PO (19:36)
[2017-02-24 20:08] VITALS: BP 97/64
== END 2017-02-24 20:09 | disposition home or self-care (01) ==
LOC: EME 18:37
DX: K02.9 Dental caries, unspecified (principal); K08.89 Other specified disorders of teeth and supporting structures; S00.451A Superficial foreign body of right ear, initial encounter
CPT/HCPCS: 99281; 99283

== ENCOUNTER 2017-02-25 18:56 | Emergency (ER) | payer OTHER ==
[~2017-02-25] VITALS: Ht 177.8 cm; Wt 103.0 kg
[2017-02-25 19:34] LABS: HEMATOCRIT 39.1 % (38.0-50.0); MCH 32.7 PG (29.0-34.0); MEAN PLAT.VOLUME 9.2 uM^3 (9.0-12.4); PLATELET COUNT 236 K/uL (156-360); RBC DIS.WIDTH-CV 13.4 % (11.8-14.6); RBC DIS.WIDTH-SD 49.4 % (39-53); RED BLOOD COUNT 3.95 M/uL (4.00-5.50); WHITE BLOOD COUNT 5.6 K/uL (4.1-10.2)
[2017-02-25 19:46] LABS: CHLORIDE 105 mEq/L (99-109); POTASSIUM 3.9 mEq/L (3.7-5.4); SODIUM 138 mEq/L (136-147)
[2017-02-25 19:48] LABS: GLUCOSE 91 mg/dL (70-99)
[2017-02-25 19:49] LABS: ANION GAP 11 MEQ/L (2-14)
[2017-02-25 19:52] LABS: GFR ESTIMATE (CALCULATED) > 59 mL/min/
[2017-02-25 19:53] LABS: UREA NITROGEN (BUN) 8 mg/dL (9-23)
[2017-02-25 19:54] LABS: TROP-I INTERPRETATION NEGATIVE; TROPONIN-I < 0.01 ng/mL (0.0-0.30)
[2017-02-25 21:15] VITALS: BP 112/65
== END 2017-02-25 21:16 | disposition home or self-care (01) ==
LOC: EME 18:56
DX: F10.129 Alcohol abuse with intoxication, unspecified (principal); I10 Essential (primary) hypertension; F32.9 Major depressive disorder, single episode, unspecified; Z86.73 Personal history of transient ischemic attack (TIA), and cerebral infarction without residual deficits
CPT/HCPCS: 71020; 80048; 84484; 85027; 93005; 99281; 99285

== ENCOUNTER 2017-02-26 12:31 | Emergency (ER) | payer OTHER ==
[~2017-02-26] VITALS: Ht 177.8 cm; Wt 97.3 kg
[2017-02-26 17:16] VITALS: BP 122/78
== END 2017-02-26 17:19 | disposition home or self-care (01) ==
LOC: EME 12:31
DX: F10.229 Alcohol dependence with intoxication, unspecified (principal); I10 Essential (primary) hypertension; I48.91 Unspecified atrial fibrillation; K21.9 Gastro-esophageal reflux disease without esophagitis; E03.9 Hypothyroidism, unspecified; F41.9 Anxiety disorder, unspecified; F32.9 Major depressive disorder, single episode, unspecified; Z86.73 Personal history of transient ischemic attack (TIA), and cerebral infarction without residual deficits; Z59.0 Homelessness
CPT/HCPCS: 99281; 99284

== ENCOUNTER 2017-02-27 15:29 | Emergency (ER) | payer OTHER ==
[~2017-02-27] VITALS: Ht 177.8 cm; Wt 98.3 kg
[2017-02-27 16:09] LABS: HEMATOCRIT 37.1 % (38.0-50.0); MCH 32.8 PG (29.0-34.0); MCHC 33.4 G/DL (30.0-36.0); MCV 98.1 FL (86-99); PLATELET COUNT 246 K/uL (156-360); RBC DIS.WIDTH-CV 13.4 % (11.8-14.6); RBC DIS.WIDTH-SD 48.4 % (39-53); RED BLOOD COUNT 3.78 M/uL (4.00-5.50); WHITE BLOOD COUNT 5.6 K/uL (4.1-10.2)
[2017-02-27 16:15] LABS: CHLORIDE 105 mEq/L (99-109); SODIUM 136 mEq/L (136-147)
[2017-02-27 16:17] LABS: GLUCOSE 103 mg/dL (70-99)
[2017-02-27 16:19] VITALS: BP 111/62
[2017-02-27 16:19] LABS: ANION GAP 11 MEQ/L (2-14)
[2017-02-27 16:20] LABS: SERUM ETHYL ALCOHOL 289 mg/dL
[2017-02-27 16:21] LABS: GFR ESTIMATE (CALCULATED) > 59 mL/min/
[2017-02-27 16:22] LABS: UREA NITROGEN (BUN) 15 mg/dL (9-23)
== END 2017-02-27 16:21 | disposition left against medical advice (07) ==
LOC: EME 15:29
PROVIDERS: Emergency Medicine
DX: F10.129 Alcohol abuse with intoxication, unspecified (principal); Y90.8 Blood alcohol level of 240 mg/100 ml or more; F32.9 Major depressive disorder, single episode, unspecified; I10 Essential (primary) hypertension; Z86.73 Personal history of transient ischemic attack (TIA), and cerebral infarction without residual deficits
CPT/HCPCS: 80048; 85027; 99281; 99284; G0480

== ENCOUNTER 2017-02-28 19:22 | Emergency (ER) | payer OTHER ==
[~2017-02-28] VITALS: Ht 177.8 cm; Wt 96.4 kg
[2017-02-28 21:00] LABS: HEMATOCRIT 34.3 % (38.0-50.0); MCH 33.1 PG (29.0-34.0); MCHC 34.1 G/DL (30.0-36.0); MCV 97.2 FL (86-99); MEAN PLAT.VOLUME 8.9 uM^3 (9.0-12.4); PLATELET COUNT 198 K/uL (156-360); RBC DIS.WIDTH-CV 13.2 % (11.8-14.6); RBC DIS.WIDTH-SD 46.7 % (39-53); RED BLOOD COUNT 3.53 M/uL (4.00-5.50); WHITE BLOOD COUNT 5.2 K/uL (4.1-10.2)
[2017-02-28 21:11] LABS: CHLORIDE 104 mEq/L (99-109); POTASSIUM 3.6 mEq/L (3.7-5.4); SODIUM 136 mEq/L (136-147)
[2017-02-28 21:13] LABS: GLUCOSE 88 mg/dL (70-99)
[2017-02-28 21:14] LABS: ANION GAP 12 MEQ/L (2-14)
[2017-02-28 21:16] LABS: SERUM ETHYL ALCOHOL 314 mg/dL
[2017-02-28 21:17] LABS: GFR ESTIMATE (CALCULATED) > 59 mL/min/
[2017-02-28 21:18] LABS: UREA NITROGEN (BUN) 13 mg/dL (9-23)
[2017-03-01 00:22] LABS: COCAINE NEGATIVE (150 ng/mL); METHAMPHETAMINE NEGATIVE (500 ng/mL); OPIATES (MORPHINE) NEGATIVE (100 ng/mL); PHENCYCLIDINE NEGATIVE (25 ng/mL); THC CANNABINOIDS NEGATIVE (50 ng/mL)
[2017-03-01 00:23] LABS: AMPHETAMINE NEGATIVE (500 ng/mL); BARBITURATES NEGATIVE (200 ng/mL); BENZODIAZEPINES NEGATIVE (150 ng/mL); INTERNAL CONTROLS VALID? YES; METHADONE NEGATIVE (200 ng/mL); OXYCODONE NEGATIVE (100 ng/mL); PROPOXYPHENE NEGATIVE (300 ng/mL); TRICYCLIC ANTIDEPRESSANTS NEGATIVE (300 ng/mL)
[2017-03-01 06:19] VITALS: BP 108/67
== END 2017-03-01 06:20 | disposition home or self-care (01) ==
LOC: EME 19:22
PROVIDERS: Emergency Medicine
DX: F10.229 Alcohol dependence with intoxication, unspecified (principal); Y90.8 Blood alcohol level of 240 mg/100 ml or more; F43.21 Adjustment disorder with depressed mood; I48.91 Unspecified atrial fibrillation; Z79.01 Long term (current) use of anticoagulants; I10 Essential (primary) hypertension; K21.9 Gastro-esophageal reflux disease without esophagitis; Z86.73 Personal history of transient ischemic attack (TIA), and cerebral infarction without residual deficits; F41.9 Anxiety disorder, unspecified; F32.9 Major depressive disorder, single episode, unspecified; E03.9 Hypothyroidism, unspecified
CPT/HCPCS: 80048; 85027; 90839; 99281; 99285; G0480

== ENCOUNTER 2017-03-01 14:58 | Emergency (ER) | payer OTHER ==
[~2017-03-01] VITALS: Ht 175.3 cm; Wt 96.0 kg
[2017-03-01 15:23] LABS: BASOPHIL COUNT 0.1 K/uL (0-0.1); EOSINOPHIL (%) 4.1 % (0-5); EOSINOPHIL COUNT 0.2 K/uL (0-0.3); HEMATOCRIT 35.9 % (38.0-50.0); IMMATURE GRANULOCYTE (%) 0.4 % (0.0-0.7); INSTRUMENT ABS NEUTROPHIL CT 3.5 K/uL; LYMPHOCYTE COUNT 1.3 K/uL (1.0-2.8); MCH 33.6 PG (29.0-34.0); MCHC 34.3 G/DL (30.0-36.0); MCV 98.1 FL (86-99); MONOCYTE (%) 8.5 % (3-12); MONOCYTE COUNT 0.5 K/uL (0-0.8); NEUTROPHIL (%) 62.7 % (45-76); NEUTROPHIL COUNT 3.5 K/uL (1.8-6.4); PLATELET COUNT 206 K/uL (156-360); RBC DIS.WIDTH-CV 13.2 % (11.8-14.6); RBC DIS.WIDTH-SD 47.7 % (39-53); RED BLOOD COUNT 3.66 M/uL (4.00-5.50); WHITE BLOOD COUNT 5.6 K/uL (4.1-10.2)
[2017-03-01 15:34] LABS: CHLORIDE 105 mEq/L (99-109); POTASSIUM 3.7 mEq/L (3.7-5.4); SODIUM 138 mEq/L (136-147)
[2017-03-01 15:37] LABS: ANION GAP 12 MEQ/L (2-14)
[2017-03-01 15:38] LABS: SERUM ETHYL ALCOHOL 339 mg/dL
[2017-03-01 15:39] LABS: GFR ESTIMATE (CALCULATED) > 59 mL/min/
[2017-03-01 15:40] LABS: UREA NITROGEN (BUN) 10 mg/dL (9-23)
[2017-03-01 15:41] LABS: GLUCOSE 115 mg/dL (70-99)
[2017-03-01 16:54] LABS: ADD MIUA? NO; BILIRUBIN NEGATIVE; BLOOD NEGATIVE; COLOR YELLOW ((YELLOW)); GLUCOSE (STRIP) NEGATIVE; KETONES NEGATIVE; LEUKOCYTES NEGATIVE; NITRITE NEGATIVE; PROTEIN (STRIP) NEGATIVE; SPECIFIC GRAVITY 1.005 (1.000-1.030); UROBILINOGEN 0.2 MG/DL (0.2-1.0)
[2017-03-01 17:07] LABS: AMPHETAMINE NEGATIVE (500 ng/mL); BARBITURATES NEGATIVE (200 ng/mL); BENZODIAZEPINES NEGATIVE (150 ng/mL); COCAINE NEGATIVE (150 ng/mL); INTERNAL CONTROLS VALID? YES; METHADONE NEGATIVE (200 ng/mL); METHAMPHETAMINE NEGATIVE (500 ng/mL); OPIATES (MORPHINE) NEGATIVE (100 ng/mL); OXYCODONE NEGATIVE (100 ng/mL); PHENCYCLIDINE NEGATIVE (25 ng/mL); PROPOXYPHENE NEGATIVE (300 ng/mL); THC CANNABINOIDS NEGATIVE (50 ng/mL); TRICYCLIC ANTIDEPRESSANTS NEGATIVE (300 ng/mL)
[2017-03-02 01:48] VITALS: BP 129/83
== END 2017-03-02 01:49 | disposition home or self-care (01) ==
LOC: EME 14:58
PROVIDERS: Emergency Medicine
DX: F10.20 Alcohol dependence, uncomplicated (principal); F34.1 Dysthymic disorder; Y90.8 Blood alcohol level of 240 mg/100 ml or more; I10 Essential (primary) hypertension; K21.9 Gastro-esophageal reflux disease without esophagitis; Z86.73 Personal history of transient ischemic attack (TIA), and cerebral infarction without residual deficits
CPT/HCPCS: 80048; 81003; 85025; 90837; 99281; 99285; G0480

== ENCOUNTER 2017-03-02 18:33 | Emergency (ER) | payer OTHER ==
[~2017-03-02] VITALS: Ht 177.8 cm; Wt 100.0 kg
[2017-03-02 19:01] LABS: AMPHETAMINE NEGATIVE (500 ng/mL); BENZODIAZEPINES PRESUMPTIVE POSITIVE (150 ng/mL); COCAINE NEGATIVE (150 ng/mL); METHADONE NEGATIVE (200 ng/mL); METHAMPHETAMINE NEGATIVE (500 ng/mL); OPIATES (MORPHINE) NEGATIVE (100 ng/mL); PHENCYCLIDINE NEGATIVE (25 ng/mL); THC CANNABINOIDS NEGATIVE (50 ng/mL); TRICYCLIC ANTIDEPRESSANTS NEGATIVE (300 ng/mL)
[2017-03-02 19:02] LABS: ADD MEDTOX COMMENT Y; BARBITURATES NEGATIVE (200 ng/mL); INTERNAL CONTROLS VALID? YES; OXYCODONE NEGATIVE (100 ng/mL); PROPOXYPHENE NEGATIVE (300 ng/mL)
[2017-03-02 19:30] LABS: BENZODIAZEPINES QUANT VALUE 0 NG/ML; BENZODIAZEPINES, URINE SCREEN Negative (200 ng/mL)
[2017-03-02 20:42] LABS: HEMATOCRIT 36.6 % (38.0-50.0); MCH 33.1 PG (29.0-34.0); MCHC 33.6 G/DL (30.0-36.0); MCV 98.4 FL (86-99); MEAN PLAT.VOLUME 9.4 uM^3 (9.0-12.4); PLATELET COUNT 189 K/uL (156-360); RBC DIS.WIDTH-CV 13.2 % (11.8-14.6); RBC DIS.WIDTH-SD 47.9 % (39-53); RED BLOOD COUNT 3.72 M/uL (4.00-5.50); WHITE BLOOD COUNT 4.3 K/uL (4.1-10.2)
[2017-03-02 20:54] LABS: CHLORIDE 107 mEq/L (99-109); SODIUM 140 mEq/L (136-147)
[2017-03-02 20:57] LABS: ANION GAP 10 MEQ/L (2-14)
[2017-03-02 20:59] LABS: SERUM ETHYL ALCOHOL 239 mg/dL
[2017-03-02 21:00] LABS: GFR ESTIMATE (CALCULATED) > 59 mL/min/
[2017-03-02 21:01] LABS: UREA NITROGEN (BUN) 8 mg/dL (9-23)
[2017-03-02 21:06] LABS: GLUCOSE 84 mg/dL (70-99)
[2017-03-03 03:41] VITALS: BP 127/84
== END 2017-03-03 03:42 | disposition home or self-care (01) ==
LOC: EME 18:33
DX: F10.129 Alcohol abuse with intoxication, unspecified (principal); R45.851 Suicidal ideations; Z04.6 Encounter for general psychiatric examination, requested by authority
CPT/HCPCS: 80048; 84999; 85027; 90837; 99281; 99285; G0480

== ENCOUNTER 2017-03-04 15:34 | Inpatient (IN) | payer OTHER ==
[~2017-03-04] VITALS: Ht 177.8 cm; Wt 94.4 kg
[2017-03-04 17:19] LABS: HEMATOCRIT 35.2 % (38.0-50.0); MCH 33.3 PG (29.0-34.0); MCHC 34.1 G/DL (30.0-36.0); MCV 97.8 FL (86-99); MEAN PLAT.VOLUME 9.8 uM^3 (9.0-12.4); PLATELET COUNT 180 K/uL (156-360); RBC DIS.WIDTH-SD 47.3 % (39-53); WHITE BLOOD COUNT 4.2 K/uL (4.1-10.2)
[2017-03-04 17:55] LABS: CHLORIDE 103 mEq/L (99-109); POTASSIUM 3.9 mEq/L (3.7-5.4); SODIUM 135 mEq/L (136-147)
[2017-03-04 17:57] LABS: GLUCOSE 100 mg/dL (70-99)
[2017-03-04 17:58] LABS: ANION GAP 10 MEQ/L (2-14)
[2017-03-04 18:00] LABS: GFR ESTIMATE (CALCULATED) > 59 mL/min/; SERUM ETHYL ALCOHOL 269 mg/dL
[2017-03-04 18:01] LABS: UREA NITROGEN (BUN) 8 mg/dL (9-23)
[2017-03-04 21:41] LABS: AMPHETAMINE NEGATIVE (500 ng/mL); BARBITURATES NEGATIVE (200 ng/mL); BENZODIAZEPINES NEGATIVE (150 ng/mL); COCAINE NEGATIVE (150 ng/mL); INTERNAL CONTROLS VALID? YES; METHADONE NEGATIVE (200 ng/mL); METHAMPHETAMINE NEGATIVE (500 ng/mL); OPIATES (MORPHINE) NEGATIVE (100 ng/mL); OXYCODONE NEGATIVE (100 ng/mL); PHENCYCLIDINE NEGATIVE (25 ng/mL); PROPOXYPHENE NEGATIVE (300 ng/mL); THC CANNABINOIDS NEGATIVE (50 ng/mL); TRICYCLIC ANTIDEPRESSANTS NEGATIVE (300 ng/mL)
[2017-03-05 14:52] VITALS: BP 147/98
[2017-03-05 15:29] VITALS: BP 147/98
[2017-03-05] MEDS ORDERED: CELEXA40 MG PO (15:40)
[2017-03-05] MEDS ORDERED: METOPROLOL SUCC50 MG PO (15:41)
[2017-03-05] MEDS ORDERED: CARDIZEM CD,CA240 MG PO (15:43)
[2017-03-05] MEDS ORDERED: LEVO-T100 MCG PO (15:45)
[2017-03-05] MEDS ORDERED: MOBIC15 MG PO (15:46)
[2017-03-05] MEDS ORDERED: ALLERGY RELIEF10 M5 PO (15:48)
[2017-03-05] MEDS ORDERED: FLONASE16 G1 ALT NARES (15:50)
[2017-03-06 07:32] VITALS: BP 155/96
[2017-03-06 11:21] VITALS: BP 114/69
[2017-03-06 16:22] VITALS: BP 108/64
[2017-03-07 07:56] VITALS: BP 157/90
[2017-03-07 11:38] VITALS: BP 135/86
[2017-03-07 15:33] VITALS: BP 135/71
[2017-03-08 07:43] VITALS: BP 143/90
[2017-03-08 15:22] VITALS: BP 126/74
[2017-03-09 07:44] VITALS: BP 138/72
[2017-03-09] MEDS ORDERED: Thiamine,Vitamin B1 PO (12:58)
[2017-03-09] MEDS ORDERED: XARELTO20 MG PO (12:58)
[2017-03-09] MEDS ORDERED: FOLIC ACID1 MG PO (12:58)
== END 2017-03-09 14:50 | disposition home or self-care (01) | DRG 881 ==
LOC: EME 15:34 → 1WEST 03-05 14:09 → EDOF 03-05 14:09 → 1WEST 03-05 14:39
PROVIDERS: Emergency Medicine
DX: F32.9 Major depressive disorder, single episode, unspecified (principal); E03.9 Hypothyroidism, unspecified; I10 Essential (primary) hypertension; I48.91 Unspecified atrial fibrillation; F41.9 Anxiety disorder, unspecified; R45.851 Suicidal ideations; K21.9 Gastro-esophageal reflux disease without esophagitis; Z59.0 Homelessness; Z86.73 Personal history of transient ischemic attack (TIA), and cerebral infarction without residual deficits
CPT/HCPCS: 80048; 85027; 90839; 99281; 99285; G0480

== ENCOUNTER 2017-05-18 15:12 | Emergency (ER) | payer OTHER ==
[~2017-05-18] VITALS: Ht 177.8 cm; Wt 99.8 kg
[~2017-05-18 15:12] MED LIST changes: +ALLERGY RELIEF10 M5 PO; +FLONASE16 G1 ALT NARES
[2017-05-18 16:00] LABS: HEMATOCRIT 39.2 % (38.0-50.0); MCH 32.7 PG (29.0-34.0); MCHC 33.2 G/DL (30.0-36.0); MCV 98.5 FL (86-99); MEAN PLAT.VOLUME 9.6 uM^3 (9.0-12.4); PLATELET COUNT 304 K/uL (156-360); RBC DIS.WIDTH-CV 14.3 % (11.8-14.6); RBC DIS.WIDTH-SD 52.1 % (39-53); RED BLOOD COUNT 3.98 M/uL (4.00-5.50)
[2017-05-18 16:07] LABS: CHLORIDE 105 mEq/L (99-109); POTASSIUM 4.4 mEq/L (3.7-5.4); SODIUM 137 mEq/L (136-147)
[2017-05-18 16:08] LABS: GLUCOSE 58 mg/dL (70-99)
[2017-05-18 16:10] LABS: ANION GAP 15 MEQ/L (2-14)
[2017-05-18 16:12] LABS: GFR ESTIMATE (CALCULATED) > 59 mL/min/; SERUM ETHYL ALCOHOL 273 mg/dL
[2017-05-18 16:13] LABS: UREA NITROGEN (BUN) 18 mg/dL (9-23)
[2017-05-18 16:18] LABS: TROP-I INTERPRETATION NEGATIVE; TROPONIN-I < 0.01 ng/mL (0.0-0.30)
[2017-05-18 18:53] LABS: TROP-I INTERPRETATION NEGATIVE; TROPONIN-I < 0.01 ng/mL (0.0-0.30)
[2017-05-18 19:42] LABS: POINT-OF-CARE METER ID UU13113747
[2017-05-19 02:10] VITALS: BP 136/89
== END 2017-05-18 19:48 | disposition home or self-care (01) ==
LOC: EME 15:12
PROVIDERS: Emergency Medicine
DX: R07.9 Chest pain, unspecified (principal); F10.129 Alcohol abuse with intoxication, unspecified
CPT/HCPCS: 71010; 80048; 82948; 83880; 84484; 85027; 93005; 99281; 99285; G0480

== ENCOUNTER 2017-05-27 11:26 | Emergency (ER) | payer OTHER | END 2017-05-27 13:12 | disposition left against medical advice (07) | LOC: EME 11:26 | DX: M79.601 Pain in right arm (principal); Z53.21 Procedure and treatment not carried out due to patient leaving prior to being seen by health care provider ==

== ENCOUNTER 2017-06-13 16:01 | Emergency (ER) | payer OTHER ==
[~2017-06-13] VITALS: Ht 177.8 cm; Wt 101.8 kg
[2017-06-13 16:26] VITALS: BP 123/74
[2017-06-13 17:49] LABS: HEMATOCRIT 43.3 % (38.0-50.0); MCHC 33.7 G/DL (30.0-36.0); MEAN PLAT.VOLUME 9.7 uM^3 (9.0-12.4); PLATELET COUNT 271 K/uL (156-360); RBC DIS.WIDTH-CV 14.6 % (11.8-14.6); RED BLOOD COUNT 4.42 M/uL (4.00-5.50); WHITE BLOOD COUNT 7.8 K/uL (4.1-10.2)
[2017-06-13 18:02] LABS: CHLORIDE 105 mEq/L (99-109); SODIUM 143 mEq/L (136-147)
[2017-06-13 18:03] LABS: GLUCOSE 103 mg/dL (70-99)
[2017-06-13 18:05] LABS: ANION GAP 16 MEQ/L (2-14)
[2017-06-13 18:07] LABS: GFR ESTIMATE (CALCULATED) > 59 mL/min/
[2017-06-13 18:08] LABS: UREA NITROGEN (BUN) 15 mg/dL (9-23)
== END 2017-06-13 20:30 | disposition left against medical advice (07) ==
LOC: EME 16:01
DX: R55 Syncope and collapse (principal); R26.2 Difficulty in walking, not elsewhere classified; F10.99 Alcohol use, unspecified with unspecified alcohol-induced disorder; R42 Dizziness and giddiness; Z53.21 Procedure and treatment not carried out due to patient leaving prior to being seen by health care provider
CPT/HCPCS: 71020; 80048; 85027; 93005

== ENCOUNTER 2017-07-11 11:54 | Emergency (ER) | payer OTHER ==
[~2017-07-11] VITALS: Ht 177.8 cm; Wt 105.0 kg
[2017-07-11 13:00] LABS: HEMATOCRIT 40.7 % (38.0-50.0); MCH 32.4 PG (29.0-34.0); MCHC 32.4 G/DL (30.0-36.0); MEAN PLAT.VOLUME 9.6 uM^3 (9.0-12.4); PLATELET COUNT 296 K/uL (156-360); RBC DIS.WIDTH-CV 12.9 % (11.8-14.6); RBC DIS.WIDTH-SD 48.1 % (39-53); RED BLOOD COUNT 4.07 M/uL (4.00-5.50); WHITE BLOOD COUNT 6.3 K/uL (4.1-10.2)
[2017-07-11 14:54] LABS: CHLORIDE 105 mEq/L (99-109); SODIUM 138 mEq/L (136-147)
[2017-07-11 14:56] LABS: GLUCOSE 83 mg/dL (70-99)
[2017-07-11 14:57] LABS: ANION GAP 9 MEQ/L (2-14)
[2017-07-11 14:59] LABS: GFR ESTIMATE (CALCULATED) > 59 mL/min/; SERUM ETHYL ALCOHOL 198 mg/dL
[2017-07-11 15:00] LABS: UREA NITROGEN (BUN) 10 mg/dL (9-23)
[2017-07-11 16:06] LABS: AMPHETAMINE NEGATIVE (500 ng/mL); BARBITURATES NEGATIVE (200 ng/mL); BENZODIAZEPINES NEGATIVE (150 ng/mL); COCAINE NEGATIVE (150 ng/mL); INTERNAL CONTROLS VALID? YES; METHADONE NEGATIVE (200 ng/mL); METHAMPHETAMINE NEGATIVE (500 ng/mL); OPIATES (MORPHINE) NEGATIVE (100 ng/mL); OXYCODONE NEGATIVE (100 ng/mL); PHENCYCLIDINE NEGATIVE (25 ng/mL); PROPOXYPHENE NEGATIVE (300 ng/mL); THC CANNABINOIDS NEGATIVE (50 ng/mL); TRICYCLIC ANTIDEPRESSANTS NEGATIVE (300 ng/mL)
[2017-07-11 18:22] VITALS: BP 148/92
== END 2017-07-11 18:26 | disposition home or self-care (01) ==
LOC: EME 11:54
DX: F32.9 Major depressive disorder, single episode, unspecified (principal); F10.129 Alcohol abuse with intoxication, unspecified; R45.851 Suicidal ideations; I48.2 Chronic atrial fibrillation; G89.29 Other chronic pain; R00.2 Palpitations; Y90.6 Blood alcohol level of 120-199 mg/100 ml; I10 Essential (primary) hypertension; E03.9 Hypothyroidism, unspecified; Z86.73 Personal history of transient ischemic attack (TIA), and cerebral infarction without residual deficits
CPT/HCPCS: 80048; 85027; 90839; 93005; 99281; 99285; G0480

== ENCOUNTER 2017-07-14 20:05 | Emergency (ER) | payer OTHER ==
[~2017-07-14] VITALS: Ht 177.8 cm; Wt 105.0 kg
[2017-07-14 23:23] VITALS: BP 132/78
== END 2017-07-14 23:24 | disposition home or self-care (01) ==
LOC: EME 20:05
DX: F10.129 Alcohol abuse with intoxication, unspecified (principal); I10 Essential (primary) hypertension; E03.9 Hypothyroidism, unspecified
CPT/HCPCS: 99281; 99285

== ENCOUNTER 2017-07-15 13:36 | Emergency (ER) | payer OTHER ==
[~2017-07-15] VITALS: Ht 182.9 cm; Wt 103.4 kg
[2017-07-15 15:59] LABS: EOSINOPHIL (%) 7.5 % (0-5); EOSINOPHIL COUNT 0.4 K/uL (0-0.3); HEMATOCRIT 41.5 % (38.0-50.0); IMMATURE GRANULOCYTE (%) 0.5 % (0.0-0.7); INSTRUMENT ABS NEUTROPHIL CT 3.1 K/uL; LYMPHOCYTE COUNT 1.7 K/uL (1.0-2.8); MCH 33.1 PG (29.0-34.0); MCHC 33.3 G/DL (30.0-36.0); MCV 99.5 FL (86-99); MEAN PLAT.VOLUME 9.8 uM^3 (9.0-12.4); MONOCYTE (%) 8.6 % (3-12); MONOCYTE COUNT 0.5 K/uL (0-0.8); NEUTROPHIL (%) 53.7 % (45-76); NEUTROPHIL COUNT 3.1 K/uL (1.8-6.4); PLATELET COUNT 257 K/uL (156-360); RBC DIS.WIDTH-CV 12.3 % (11.8-14.6); RBC DIS.WIDTH-SD 45.2 % (39-53); RED BLOOD COUNT 4.17 M/uL (4.00-5.50); WHITE BLOOD COUNT 5.8 K/uL (4.1-10.2)
[2017-07-15 16:11] LABS: CHLORIDE 108 mEq/L (99-109)
[2017-07-15 16:12] LABS: POTASSIUM 4.1 mEq/L (3.7-5.4); SODIUM 142 mEq/L (136-147)
[2017-07-15 16:14] LABS: GLUCOSE 79 mg/dL (70-99)
[2017-07-15 16:15] LABS: ANION GAP 11 MEQ/L (2-14)
[2017-07-15 16:16] LABS: TOTAL BILIRUBIN 0.5 mg/dL (0.0-1.0)
[2017-07-15 16:17] LABS: SERUM ETHYL ALCOHOL 242 mg/dL
[2017-07-15 16:18] LABS: ALKALINE PHOSPHATASE 71 IU/L (3-129); GFR ESTIMATE (CALCULATED) > 59 mL/min/
[2017-07-15 16:20] LABS: UREA NITROGEN (BUN) 10 mg/dL (9-23)
[2017-07-15 16:21] LABS: SALICYLATE < 5.0 MG/DL (15-30)
[2017-07-15 17:43] LABS: ADD MIUA? NO; BILIRUBIN NEGATIVE; BLOOD NEGATIVE; COLOR STRAW ((YELLOW)); GLUCOSE (STRIP) NEGATIVE; KETONES NEGATIVE; LEUKOCYTES NEGATIVE; NITRITE NEGATIVE; PROTEIN (STRIP) NEGATIVE; SPECIFIC GRAVITY 1.004 (1.000-1.030); UCUL ADDED? NO; UROBILINOGEN 0.2 MG/DL (0.2-1.0)
[2017-07-15 18:05] LABS: AMPHETAMINE NEGATIVE (500 ng/mL); BARBITURATES NEGATIVE (200 ng/mL); BENZODIAZEPINES NEGATIVE (150 ng/mL); COCAINE NEGATIVE (150 ng/mL); INTERNAL CONTROLS VALID? YES; METHADONE NEGATIVE (200 ng/mL); METHAMPHETAMINE NEGATIVE (500 ng/mL); OPIATES (MORPHINE) NEGATIVE (100 ng/mL); OXYCODONE NEGATIVE (100 ng/mL); PHENCYCLIDINE NEGATIVE (25 ng/mL); PROPOXYPHENE NEGATIVE (300 ng/mL); THC CANNABINOIDS NEGATIVE (50 ng/mL); TRICYCLIC ANTIDEPRESSANTS PRESUMPTIVE POSITIVE (300 ng/mL)
[2017-07-15 22:37] VITALS: BP 113/83
== END 2017-07-15 22:43 | disposition home or self-care (01) ==
LOC: EME 13:36
PROVIDERS: Physician Assistant
DX: F10.129 Alcohol abuse with intoxication, unspecified (principal); Y90.8 Blood alcohol level of 240 mg/100 ml or more; R45.851 Suicidal ideations; I10 Essential (primary) hypertension; K21.9 Gastro-esophageal reflux disease without esophagitis; E03.9 Hypothyroidism, unspecified; F41.9 Anxiety disorder, unspecified; F32.9 Major depressive disorder, single episode, unspecified; Z85.9 Personal history of malignant neoplasm, unspecified; Z86.73 Personal history of transient ischemic attack (TIA), and cerebral infarction without residual deficits
CPT/HCPCS: 80053; 81003; 85025; 90839; 99281; 99284; G0480; J3411; J3475; J7030

== ENCOUNTER 2017-08-11 15:59 | Emergency (ER) | payer OTHER ==
[~2017-08-11] VITALS: Ht 175.3 cm; Wt 124.1 kg
[2017-08-11 17:05] LABS: HEMATOCRIT 38.7 % (38.0-50.0); MCH 33.4 PG (29.0-34.0); MCHC 34.1 G/DL (30.0-36.0); MEAN PLAT.VOLUME 9.8 uM^3 (9.0-12.4); PLATELET COUNT 242 K/uL (156-360); RBC DIS.WIDTH-CV 11.8 % (11.8-14.6); RBC DIS.WIDTH-SD 42.7 % (39-53); RED BLOOD COUNT 3.95 M/uL (4.00-5.50); WHITE BLOOD COUNT 5.7 K/uL (4.1-10.2)
[2017-08-11 17:13] LABS: CHLORIDE 103 mEq/L (99-109)
[2017-08-11 17:14] LABS: POTASSIUM 3.9 mEq/L (3.7-5.4); SODIUM 138 mEq/L (136-147)
[2017-08-11 17:15] LABS: GLUCOSE 94 mg/dL (70-99)
[2017-08-11 17:17] LABS: ANION GAP 11 MEQ/L (2-14)
[2017-08-11 17:18] LABS: SERUM ETHYL ALCOHOL 175 mg/dL
[2017-08-11 17:19] LABS: GFR ESTIMATE (CALCULATED) > 59 mL/min/ (58.99-99999)
[2017-08-11 17:21] LABS: UREA NITROGEN (BUN) 10 mg/dL (9-23)
[2017-08-11 17:22] LABS: SALICYLATE < 5.0 MG/DL (15-30)
[2017-08-11 20:38] LABS: AMPHETAMINE NEGATIVE (500 ng/mL); BARBITURATES NEGATIVE (200 ng/mL); BENZODIAZEPINES NEGATIVE (150 ng/mL); COCAINE NEGATIVE (150 ng/mL); INTERNAL CONTROLS VALID? YES; METHADONE NEGATIVE (200 ng/mL); METHAMPHETAMINE NEGATIVE (500 ng/mL); OPIATES (MORPHINE) NEGATIVE (100 ng/mL); OXYCODONE NEGATIVE (100 ng/mL); PHENCYCLIDINE NEGATIVE (25 ng/mL); PROPOXYPHENE NEGATIVE (300 ng/mL); THC CANNABINOIDS NEGATIVE (50 ng/mL); TRICYCLIC ANTIDEPRESSANTS NEGATIVE (300 ng/mL)
[2017-08-11 20:43] VITALS: BP 132/76
== END 2017-08-11 20:44 | disposition home or self-care (01) ==
LOC: EME 15:59
PROVIDERS: Emergency Medicine
DX: F10.10 Alcohol abuse, uncomplicated (principal); F32.9 Major depressive disorder, single episode, unspecified; Y90.6 Blood alcohol level of 120-199 mg/100 ml; Z04.6 Encounter for general psychiatric examination, requested by authority; I10 Essential (primary) hypertension; K21.9 Gastro-esophageal reflux disease without esophagitis; E03.9 Hypothyroidism, unspecified; F41.9 Anxiety disorder, unspecified; R56.9 Unspecified convulsions; Z86.73 Personal history of transient ischemic attack (TIA), and cerebral infarction without residual deficits
CPT/HCPCS: 80048; 85027; 90837; 99281; 99285; G0480

== ENCOUNTER 2017-08-18 20:04 | Emergency (ER) | payer OTHER ==
[~2017-08-18] VITALS: Ht 177.8 cm; Wt 103.1 kg
[2017-08-19] MEDS ORDERED: LIBRIUM25 MG PO (06:18)
[2017-08-19 06:30] VITALS: BP 121/74
== END 2017-08-19 06:30 | disposition home or self-care (01) ==
LOC: EME 20:04
DX: F10.129 Alcohol abuse with intoxication, unspecified (principal); Y90.8 Blood alcohol level of 240 mg/100 ml or more; F32.9 Major depressive disorder, single episode, unspecified; K21.9 Gastro-esophageal reflux disease without esophagitis; I10 Essential (primary) hypertension; E03.9 Hypothyroidism, unspecified; F41.9 Anxiety disorder, unspecified; Z86.73 Personal history of transient ischemic attack (TIA), and cerebral infarction without residual deficits; Z59.0 Homelessness
CPT/HCPCS: 90839; 99281; 99284; G0480

== ENCOUNTER 2017-09-21 13:39 | Emergency (ER) | payer OTHER ==
[~2017-09-21] VITALS: Ht 177.8 cm; Wt 96.0 kg
[2017-09-21 14:18] LABS: BASOPHIL (%) 0.5 % (0-1); EOSINOPHIL (%) 4.5 % (0-5); EOSINOPHIL COUNT 0.3 K/uL (0-0.3); HEMATOCRIT 39.5 % (38.0-50.0); HEMOGLOBIN 13.4 G/DL (12.5-16.6); IMMATURE GRANULOCYTE (%) 0.2 % (0.0-0.7); LYMPHOCYTE (%) 24.7 % (15-42); LYMPHOCYTE COUNT 1.4 K/uL (1.0-2.8); MCH 33.3 PG (29.0-34.0); MCHC 33.9 G/DL (30.0-36.0); MONOCYTE (%) 11.1 % (3-12); MONOCYTE COUNT 0.6 K/uL (0-0.8); NEUTROPHIL COUNT 3.4 K/uL (1.8-6.4); PLATELET COUNT 196 K/uL (156-360); RBC DIS.WIDTH-CV 12.5 % (11.8-14.6); RBC DIS.WIDTH-SD 45.3 % (39-53); RED BLOOD COUNT 4.03 M/uL (4.00-5.50); WHITE BLOOD COUNT 5.7 K/uL (4.1-10.2)
[2017-09-21 14:47] LABS: CHLORIDE 103 MEQ/L (99-109); GFR ESTIMATE (CALCULATED) > 59 mL/min/ (58.99-99999); GLUCOSE 96 mg/dL (70-99); POTASSIUM 4.5 MEQ/L (3.7-5.4); SERUM ETHYL ALCOHOL 392 mg/dL; SODIUM 140 MEQ/L (136-147); UREA NITROGEN (BUN) 12 mg/dL (9-23)
[2017-09-21 17:33] LABS: APPEARANCE CLEAR ((CLEAR)); BILIRUBIN NEGATIVE; BLOOD NEGATIVE; COLOR YELLOW ((YELLOW)); GLUCOSE (STRIP) NEGATIVE; KETONES NEGATIVE; LEUKOCYTES NEGATIVE; NITRITE NEGATIVE; PROTEIN (STRIP) NEGATIVE; SPECIFIC GRAVITY 1.008 (1.000-1.030); UROBILINOGEN 0.2 MG/DL (0.2-1.0)
[2017-09-21 17:42] LABS: AMPHETAMINE NEGATIVE (500 ng/mL); BARBITURATES NEGATIVE (200 ng/mL); BENZODIAZEPINES NEGATIVE (150 ng/mL); BUPRENORPHINE NEGATIVE (10 ng/mL); COCAINE NEGATIVE (150 ng/mL); METHADONE NEGATIVE (200 ng/mL); METHAMPHETAMINE NEGATIVE (500 ng/mL); OPIATES (MORPHINE) NEGATIVE (100 ng/mL); OXYCODONE NEGATIVE (100 ng/mL); PHENCYCLIDINE NEGATIVE (25 ng/mL); PROPOXYPHENE NEGATIVE (300 ng/mL); THC CANNABINOIDS NEGATIVE (50 ng/mL); TRICYCLIC ANTIDEPRESSANTS NEGATIVE (300 ng/mL)
[2017-09-22 02:08] VITALS: BP 112/83
== END 2017-09-22 02:11 | disposition home or self-care (01) ==
LOC: EME 13:39
PROVIDERS: Emergency Medicine
DX: F10.129 Alcohol abuse with intoxication, unspecified (principal); F32.9 Major depressive disorder, single episode, unspecified; E03.9 Hypothyroidism, unspecified; I10 Essential (primary) hypertension; Z91.5 Personal history of self-harm; Z86.73 Personal history of transient ischemic attack (TIA), and cerebral infarction without residual deficits; Y90.8 Blood alcohol level of 240 mg/100 ml or more
CPT/HCPCS: 80048; 81003; 85025; 99281; 99284; G0480

== ENCOUNTER 2017-09-28 17:09 | Emergency (ER) | payer OTHER ==
[~2017-09-28] VITALS: Ht 177.8 cm; Wt 103.9 kg
[2017-09-28 17:48] LABS: APPEARANCE CLEAR ((CLEAR)); BILIRUBIN NEGATIVE; BLOOD NEGATIVE; COLOR STRAW ((YELLOW)); GLUCOSE (STRIP) NEGATIVE; KETONES NEGATIVE; LEUKOCYTES NEGATIVE; NITRITE NEGATIVE; PROTEIN (STRIP) NEGATIVE; SPECIFIC GRAVITY 1.004 (1.000-1.030); UROBILINOGEN 0.2 MG/DL (0.2-1.0)
[2017-09-28 17:55] LABS: HEMATOCRIT 35.3 % (38.0-50.0); HEMOGLOBIN 12.1 G/DL (12.5-16.6); MCH 33.5 PG (29.0-34.0); MCHC 34.3 G/DL (30.0-36.0); MCV 97.8 FL (86-99); RBC DIS.WIDTH-CV 12.7 % (11.8-14.6); RBC DIS.WIDTH-SD 45.7 % (39-53); RED BLOOD COUNT 3.61 M/uL (4.00-5.50); WHITE BLOOD COUNT 5.8 K/uL (4.1-10.2)
[2017-09-28 17:56] LABS: PLATELET COUNT 263 K/uL (156-360)
[2017-09-28 17:58] LABS: AMPHETAMINE NEGATIVE (500 ng/mL); BARBITURATES NEGATIVE (200 ng/mL); BENZODIAZEPINES NEGATIVE (150 ng/mL); BUPRENORPHINE NEGATIVE (10 ng/mL); COCAINE NEGATIVE (150 ng/mL); METHADONE NEGATIVE (200 ng/mL); METHAMPHETAMINE NEGATIVE (500 ng/mL); OPIATES (MORPHINE) NEGATIVE (100 ng/mL); OXYCODONE NEGATIVE (100 ng/mL); PHENCYCLIDINE NEGATIVE (25 ng/mL); PROPOXYPHENE NEGATIVE (300 ng/mL); THC CANNABINOIDS NEGATIVE (50 ng/mL); TRICYCLIC ANTIDEPRESSANTS NEGATIVE (300 ng/mL)
[2017-09-28 18:07] LABS: ALBUMIN 4.1 g/dL (3.2-4.8)
[2017-09-28 18:08] LABS: CHLORIDE 99 mEq/L (99-109); POTASSIUM 3.9 mEq/L (3.7-5.4); SODIUM 133 mEq/L (136-147)
[2017-09-28 18:10] LABS: GLUCOSE 92 mg/dL (70-99); TOTAL PROTEIN 6.9 g/dL (6.4-8.3)
[2017-09-28 18:12] LABS: TOTAL BILIRUBIN 0.7 mg/dL (0.0-1.0)
[2017-09-28 18:13] LABS: ALKALINE PHOSPHATASE 91 IU/L (3-129); SERUM ETHYL ALCOHOL 343 mg/dL
[2017-09-28 18:14] LABS: CREATININE 0.9 mg/dL (0.6-1.3); GFR ESTIMATE (CALCULATED) > 59 mL/min/ (58.99-99999)
[2017-09-28 18:15] LABS: AST (GOT) 122 IU/L (2-34); UREA NITROGEN (BUN) 9 mg/dL (9-23)
[2017-09-28 18:17] LABS: ALT (GPT) 80 IU/L (3-49)
[2017-09-29 04:23] VITALS: BP 109/81
== END 2017-09-29 04:26 | disposition home or self-care (01) ==
LOC: EME 17:09
PROVIDERS: Emergency Medicine
DX: F10.129 Alcohol abuse with intoxication, unspecified (principal); K21.9 Gastro-esophageal reflux disease without esophagitis; E03.9 Hypothyroidism, unspecified; I10 Essential (primary) hypertension; F32.9 Major depressive disorder, single episode, unspecified; Y90.8 Blood alcohol level of 240 mg/100 ml or more; Z85.9 Personal history of malignant neoplasm, unspecified; Z86.73 Personal history of transient ischemic attack (TIA), and cerebral infarction without residual deficits
CPT/HCPCS: 72040; 80053; 81003; 85027; 99281; 99285; G0480

== ENCOUNTER 2017-09-29 20:12 | Emergency (ER) | payer OTHER ==
[~2017-09-29] VITALS: Ht 177.8 cm; Wt 100.3 kg
[2017-09-29 22:02] LABS: HEMATOCRIT 35.1 % (38.0-50.0); HEMOGLOBIN 12.2 G/DL (12.5-16.6); MCH 34.4 PG (29.0-34.0); MCHC 34.8 G/DL (30.0-36.0); MCV 98.9 FL (86-99); PLATELET COUNT 230 K/uL (156-360); RBC DIS.WIDTH-SD 47.7 % (39-53); RED BLOOD COUNT 3.55 M/uL (4.00-5.50); WHITE BLOOD COUNT 4.2 K/uL (4.1-10.2)
[2017-09-29 22:10] LABS: CHLORIDE 105 mEq/L (99-109); POTASSIUM 3.8 mEq/L (3.7-5.4); SODIUM 138 mEq/L (136-147)
[2017-09-29 22:12] LABS: GLUCOSE 104 mg/dL (70-99)
[2017-09-29 22:15] LABS: SERUM ETHYL ALCOHOL 338 mg/dL
[2017-09-29 22:16] LABS: CREATININE 1.2 mg/dL (0.6-1.3); GFR ESTIMATE (CALCULATED) > 59 mL/min/ (58.99-99999)
[2017-09-29 22:18] LABS: UREA NITROGEN (BUN) 13 mg/dL (9-23)
[2017-09-29 22:19] LABS: SALICYLATE < 5.0 MG/DL (15-30)
[2017-09-29 22:20] LABS: ACETAMINOPHEN (TYLENOL) < 10 mcg/mL (10-30)
[2017-09-30 02:53] LABS: AMPHETAMINE NEGATIVE (500 ng/mL); BARBITURATES NEGATIVE (200 ng/mL); BENZODIAZEPINES NEGATIVE (150 ng/mL); BUPRENORPHINE NEGATIVE (10 ng/mL); COCAINE NEGATIVE (150 ng/mL); METHADONE NEGATIVE (200 ng/mL); METHAMPHETAMINE NEGATIVE (500 ng/mL); OPIATES (MORPHINE) NEGATIVE (100 ng/mL); OXYCODONE NEGATIVE (100 ng/mL); PHENCYCLIDINE NEGATIVE (25 ng/mL); PROPOXYPHENE NEGATIVE (300 ng/mL); THC CANNABINOIDS NEGATIVE (50 ng/mL); TRICYCLIC ANTIDEPRESSANTS NEGATIVE (300 ng/mL)
[2017-09-30 10:04] VITALS: BP 133/85
== END 2017-09-30 10:13 | disposition home or self-care (01) ==
LOC: EME 20:12
PROVIDERS: Emergency Medicine
DX: F32.9 Major depressive disorder, single episode, unspecified (principal); F10.129 Alcohol abuse with intoxication, unspecified; R45.851 Suicidal ideations; K21.9 Gastro-esophageal reflux disease without esophagitis; E03.9 Hypothyroidism, unspecified; I10 Essential (primary) hypertension; F41.9 Anxiety disorder, unspecified; Y90.8 Blood alcohol level of 240 mg/100 ml or more; Z04.6 Encounter for general psychiatric examination, requested by authority; Z86.73 Personal history of transient ischemic attack (TIA), and cerebral infarction without residual deficits; Z87.74 Personal history of (corrected) congenital malformations of heart and circulatory system; Z85.9 Personal history of malignant neoplasm, unspecified
CPT/HCPCS: 80048; 85027; 90837; 99281; 99285; G0480

== ENCOUNTER 2017-10-01 16:18 | Emergency (ER) | payer OTHER ==
[~2017-10-01] VITALS: Ht 177.8 cm; Wt 104.0 kg
[2017-10-01 17:05] LABS: HEMOGLOBIN 12.7 G/DL (12.5-16.6); MCHC 34.3 G/DL (30.0-36.0); MCV 99.2 FL (86-99); PLATELET COUNT 232 K/uL (156-360); RBC DIS.WIDTH-SD 47.2 % (39-53); RED BLOOD COUNT 3.73 M/uL (4.00-5.50); WHITE BLOOD COUNT 4.9 K/uL (4.1-10.2)
[2017-10-01 17:14] LABS: CHLORIDE 103 mEq/L (99-109); POTASSIUM 3.9 mEq/L (3.7-5.4); SODIUM 138 mEq/L (136-147)
[2017-10-01 17:17] LABS: GLUCOSE 84 mg/dL (70-99)
[2017-10-01 17:18] LABS: TOTAL BILIRUBIN 0.8 mg/dL (0.0-1.0)
[2017-10-01 17:19] LABS: SERUM ETHYL ALCOHOL 310 mg/dL
[2017-10-01 17:20] LABS: ALKALINE PHOSPHATASE 85 IU/L (3-129); CREATININE 0.9 mg/dL (0.6-1.3); GFR ESTIMATE (CALCULATED) > 59 mL/min/ (58.99-99999)
[2017-10-01 17:21] LABS: UREA NITROGEN (BUN) 8 mg/dL (9-23)
[2017-10-01 17:22] LABS: AST (GOT) 64 IU/L (2-34)
[2017-10-01 17:23] LABS: ALT (GPT) 59 IU/L (3-49)
[2017-10-01 18:58] LABS: APPEARANCE CLEAR ((CLEAR)); BILIRUBIN NEGATIVE; BLOOD NEGATIVE; COLOR STRAW ((YELLOW)); GLUCOSE (STRIP) NEGATIVE; KETONES NEGATIVE; LEUKOCYTES NEGATIVE; NITRITE NEGATIVE; PROTEIN (STRIP) NEGATIVE; SPECIFIC GRAVITY 1.004 (1.000-1.030); UCUL ADDED? NO; UROBILINOGEN 0.2 MG/DL (0.2-1.0)
[2017-10-01 19:09] LABS: AMPHETAMINE NEGATIVE (500 ng/mL); BARBITURATES NEGATIVE (200 ng/mL); BENZODIAZEPINES NEGATIVE (150 ng/mL); BUPRENORPHINE NEGATIVE (10 ng/mL); COCAINE NEGATIVE (150 ng/mL); METHADONE NEGATIVE (200 ng/mL); METHAMPHETAMINE NEGATIVE (500 ng/mL); OPIATES (MORPHINE) NEGATIVE (100 ng/mL); OXYCODONE NEGATIVE (100 ng/mL); PHENCYCLIDINE NEGATIVE (25 ng/mL); PROPOXYPHENE NEGATIVE (300 ng/mL); THC CANNABINOIDS NEGATIVE (50 ng/mL); TRICYCLIC ANTIDEPRESSANTS NEGATIVE (300 ng/mL)
[2017-10-02 01:45] VITALS: BP 132/84
== END 2017-10-02 01:50 | disposition home or self-care (01) ==
LOC: EME 16:18
PROVIDERS: Physician Assistant
DX: F10.10 Alcohol abuse, uncomplicated (principal); F32.9 Major depressive disorder, single episode, unspecified; I10 Essential (primary) hypertension; K21.9 Gastro-esophageal reflux disease without esophagitis; E03.9 Hypothyroidism, unspecified; F41.9 Anxiety disorder, unspecified; Z86.73 Personal history of transient ischemic attack (TIA), and cerebral infarction without residual deficits
CPT/HCPCS: 80053; 81003; 85027; 90839; 99281; 99285; G0480

== ENCOUNTER 2017-10-08 20:26 | Emergency (ER) | payer OTHER ==
[~2017-10-08] VITALS: Ht 177.8 cm; Wt 96.4 kg
[2017-10-08 22:54] LABS: HEMATOCRIT 38.3 % (38.0-50.0); HEMOGLOBIN 13.1 G/DL (12.5-16.6); MCH 33.9 PG (29.0-34.0); MCHC 34.2 G/DL (30.0-36.0); PLATELET COUNT 163 K/uL (156-360); RBC DIS.WIDTH-CV 13.9 % (11.8-14.6); RBC DIS.WIDTH-SD 50.8 % (39-53); RED BLOOD COUNT 3.87 M/uL (4.00-5.50); WHITE BLOOD COUNT 4.3 K/uL (4.1-10.2)
[2017-10-08 23:04] LABS: CHLORIDE 106 mEq/L (99-109); POTASSIUM 3.8 mEq/L (3.7-5.4); SODIUM 143 mEq/L (136-147)
[2017-10-08 23:06] LABS: GLUCOSE 137 mg/dL (70-99)
[2017-10-08 23:09] LABS: SERUM ETHYL ALCOHOL 341 mg/dL
[2017-10-08 23:10] LABS: CREATININE 0.9 mg/dL (0.6-1.3); GFR ESTIMATE (CALCULATED) > 59 mL/min/ (58.99-99999)
[2017-10-08 23:12] LABS: UREA NITROGEN (BUN) 8 mg/dL (9-23)
[2017-10-08 23:13] LABS: ACETAMINOPHEN (TYLENOL) < 10 mcg/mL (10-30); SALICYLATE < 5.0 MG/DL (15-30)
[2017-10-09 01:11] LABS: AMPHETAMINE NEGATIVE (500 ng/mL); BARBITURATES NEGATIVE (200 ng/mL); BENZODIAZEPINES PRESUMPTIVE POSITIVE (150 ng/mL); BUPRENORPHINE NEGATIVE (10 ng/mL); COCAINE NEGATIVE (150 ng/mL); METHADONE NEGATIVE (200 ng/mL); METHAMPHETAMINE NEGATIVE (500 ng/mL); OPIATES (MORPHINE) NEGATIVE (100 ng/mL); OXYCODONE NEGATIVE (100 ng/mL); PHENCYCLIDINE NEGATIVE (25 ng/mL); PROPOXYPHENE NEGATIVE (300 ng/mL); THC CANNABINOIDS NEGATIVE (50 ng/mL); TRICYCLIC ANTIDEPRESSANTS NEGATIVE (300 ng/mL)
[2017-10-09 01:40] LABS: BENZODIAZEPINES, URINE SCREEN Negative (200 ng/mL)
[2017-10-09 12:27] VITALS: BP 162/85
== END 2017-10-09 12:39 | disposition home or self-care (01) ==
LOC: EME → EDBD 20:26 → EME 20:26
PROVIDERS: Emergency Medicine
DX: F10.129 Alcohol abuse with intoxication, unspecified (principal); F32.9 Major depressive disorder, single episode, unspecified; R45.851 Suicidal ideations; Z86.73 Personal history of transient ischemic attack (TIA), and cerebral infarction without residual deficits; K21.9 Gastro-esophageal reflux disease without esophagitis; E03.9 Hypothyroidism, unspecified; I10 Essential (primary) hypertension; F41.9 Anxiety disorder, unspecified
CPT/HCPCS: 80048; 84999; 85027; 90839; 93005; 99281; 99285; G0480

== ENCOUNTER 2017-10-09 23:29 | Emergency (ER) | payer OTHER ==
[~2017-10-09] VITALS: Ht 177.8 cm; Wt 104.6 kg
[2017-10-10 00:58] VITALS: BP 121/80
== END 2017-10-10 00:59 | disposition home or self-care (01) ==
LOC: EME 23:29
DX: F10.239 Alcohol dependence with withdrawal, unspecified (principal); Y90.9 Presence of alcohol in blood, level not specified; I10 Essential (primary) hypertension; E03.9 Hypothyroidism, unspecified; K21.9 Gastro-esophageal reflux disease without esophagitis; F32.9 Major depressive disorder, single episode, unspecified; Z86.73 Personal history of transient ischemic attack (TIA), and cerebral infarction without residual deficits
CPT/HCPCS: 93005; 99281; 99284

== ENCOUNTER 2017-10-23 14:59 | Inpatient (IN) | payer OTHER ==
[~2017-10-23] VITALS: Ht 177.8 cm; Wt 99.9 kg
[2017-10-23 16:29] LABS: HEMATOCRIT 38.1 % (38.0-50.0); HEMOGLOBIN 13.2 G/DL (12.5-16.6); MCH 34.6 PG (29.0-34.0); MCHC 34.6 G/DL (30.0-36.0); RBC DIS.WIDTH-CV 13.4 % (11.8-14.6); RBC DIS.WIDTH-SD 49.8 % (39-53); RED BLOOD COUNT 3.81 M/uL (4.00-5.50); WHITE BLOOD COUNT 8.1 K/uL (4.1-10.2)
[2017-10-23 16:41] LABS: CHLORIDE 95 mEq/L (99-109); POTASSIUM 4.3 mEq/L (3.7-5.4); SODIUM 133 mEq/L (136-147)
[2017-10-23 16:42] LABS: PLATELET COUNT 278 K/uL (156-360)
[2017-10-23 16:43] LABS: GLUCOSE 93 mg/dL (70-99)
[2017-10-23 16:47] LABS: CREATININE 1.3 mg/dL (0.6-1.3); GFR ESTIMATE (CALCULATED) > 59 mL/min/ (58.99-99999)
[2017-10-23 16:48] LABS: UREA NITROGEN (BUN) 27 mg/dL (9-23)
[2017-10-23 18:47] LABS: APPEARANCE SL.HAZY ((CLEAR)); BILIRUBIN NEGATIVE; BLOOD NEGATIVE; COLOR YELLOW ((YELLOW)); GLUCOSE (STRIP) NEGATIVE; KETONES 5; LEUKOCYTES NEGATIVE; NITRITE NEGATIVE; PROTEIN (STRIP) 30; SPECIFIC GRAVITY 1.018 (1.000-1.030); UROBILINOGEN 0.2 MG/DL (0.2-1.0)
[2017-10-23 18:58] LABS: SERUM ETHYL ALCOHOL 266 mg/dL
[2017-10-23 18:59] LABS: BACTERIA 1+ /HPF; EPITHELIAL CELLS RARE /HPF; HYALINE CASTS 30-40 /LPF; MUCUS TRACE /LPF; RED BLOOD CELLS 0-5 /HPF (0-5); UCUL ADDED? YES
[2017-10-23 19:15] LABS: AMPHETAMINE NEGATIVE (500 ng/mL); BARBITURATES NEGATIVE (200 ng/mL); BENZODIAZEPINES NEGATIVE (150 ng/mL); BUPRENORPHINE NEGATIVE (10 ng/mL); COCAINE NEGATIVE (150 ng/mL); METHADONE NEGATIVE (200 ng/mL); METHAMPHETAMINE NEGATIVE (500 ng/mL); OPIATES (MORPHINE) NEGATIVE (100 ng/mL); OXYCODONE NEGATIVE (100 ng/mL); PHENCYCLIDINE NEGATIVE (25 ng/mL); PROPOXYPHENE NEGATIVE (300 ng/mL); THC CANNABINOIDS NEGATIVE (50 ng/mL); TRICYCLIC ANTIDEPRESSANTS NEGATIVE (300 ng/mL)
[2017-10-24] MEDS ORDERED: LEVOTHYROXINE100 MCG PO (00:13)
[2017-10-24] MEDS ORDERED: CITALOPRAM HBR10 MG PO (00:13)
[2017-10-24] MEDS ORDERED: IBUPROFEN600 MG PO (00:14)
[2017-10-24 00:25] VITALS: BP 108/53
[2017-10-24] MEDS ORDERED: IBUPROFEN800 MG PO (01:17)
[2017-10-24] MEDS ORDERED: MOBIC15 MG PO (01:21)
[2017-10-24 07:46] VITALS: BP 111/61
[2017-10-24 15:53] VITALS: BP 110/63
[2017-10-25 07:27] VITALS: BP 128/82
[2017-10-25] MEDS ORDERED: CELEXA20 MG PO (09:34)
[2017-10-25] MEDS ORDERED: Thiamine,Vitamin B1 PO (09:34)
== END 2017-10-25 10:47 | disposition home or self-care (01) | DRG 881 ==
LOC: EME 14:59 → 1WEST 23:19 → EDOF 23:19 → ENRESERV 23:48 → 1WEST 10-24 00:19
DX: F32.9 Major depressive disorder, single episode, unspecified (principal); F10.229 Alcohol dependence with intoxication, unspecified; F34.1 Dysthymic disorder; R45.851 Suicidal ideations; Y90.8 Blood alcohol level of 240 mg/100 ml or more; I10 Essential (primary) hypertension; I48.91 Unspecified atrial fibrillation; K21.9 Gastro-esophageal reflux disease without esophagitis; E03.9 Hypothyroidism, unspecified; Z59.0 Homelessness; Z91.14 Patient's other noncompliance with medication regimen; Z91.19 Patient's noncompliance with other medical treatment and regimen
CPT/HCPCS: 80048; 81003; 85027; 86003 90; 87086; 90839; 97150 GO; 97165 GO; 99281; 99285; G0480

== ENCOUNTER 2017-11-06 17:33 | Inpatient (IN) | payer OTHER ==
[~2017-11-06] VITALS: Ht 177.8 cm; Wt 100.1 kg
[~2017-11-06 17:33] MED LIST changes: +CITALOPRAM HBR10 MG PO; +IBUPROFEN600 MG PO; +IBUPROFEN800 MG PO
[2017-11-06 18:17] LABS: HEMATOCRIT 30.8 % (38.0-50.0); HEMOGLOBIN 10.6 G/DL (12.5-16.6); MCH 34.8 PG (29.0-34.0); MCHC 34.4 G/DL (30.0-36.0); PLATELET COUNT 284 K/uL (156-360); RBC DIS.WIDTH-CV 13.2 % (11.8-14.6); RBC DIS.WIDTH-SD 49.3 % (39-53); RED BLOOD COUNT 3.05 M/uL (4.00-5.50); WHITE BLOOD COUNT 6.2 K/uL (4.1-10.2)
[2017-11-06 18:33] LABS: CHLORIDE 98 mEq/L (99-109); POTASSIUM 4.4 mEq/L (3.7-5.4); SODIUM 130 mEq/L (136-147)
[2017-11-06 18:35] LABS: GLUCOSE 79 mg/dL (70-99)
[2017-11-06 18:37] LABS: TROP-I INTERPRETATION NEGATIVE; TROPONIN-I < 0.01 ng/mL (0.0-0.30)
[2017-11-06 18:38] LABS: SERUM ETHYL ALCOHOL 133 mg/dL
[2017-11-06 18:39] LABS: CREATININE 0.9 mg/dL (0.6-1.3); GFR ESTIMATE (CALCULATED) > 59 mL/min/ (58.99-99999)
[2017-11-06 18:40] LABS: UREA NITROGEN (BUN) 12 mg/dL (9-23)
[2017-11-06 20:00] LABS: APPEARANCE CLEAR ((CLEAR)); BILIRUBIN NEGATIVE; BLOOD NEGATIVE; COLOR STRAW ((YELLOW)); GLUCOSE (STRIP) NEGATIVE; KETONES NEGATIVE; LEUKOCYTES NEGATIVE; NITRITE NEGATIVE; PROTEIN (STRIP) 30; SPECIFIC GRAVITY 1.008 (1.000-1.030); UCUL ADDED? NO; UROBILINOGEN 0.2 MG/DL (0.2-1.0)
[2017-11-06 20:09] LABS: AMPHETAMINE NEGATIVE (500 ng/mL); BARBITURATES NEGATIVE (200 ng/mL); BENZODIAZEPINES PRESUMPTIVE POSITIVE (150 ng/mL); BUPRENORPHINE NEGATIVE (10 ng/mL); COCAINE NEGATIVE (150 ng/mL); METHADONE NEGATIVE (200 ng/mL); METHAMPHETAMINE NEGATIVE (500 ng/mL); OPIATES (MORPHINE) NEGATIVE (100 ng/mL); OXYCODONE NEGATIVE (100 ng/mL); PHENCYCLIDINE NEGATIVE (25 ng/mL); PROPOXYPHENE NEGATIVE (300 ng/mL); THC CANNABINOIDS NEGATIVE (50 ng/mL); TRICYCLIC ANTIDEPRESSANTS NEGATIVE (300 ng/mL)
[2017-11-06] MEDS ORDERED: GABAPENTIN300 MG PO (20:51)
[2017-11-06] MEDS ORDERED: MELOXICAM15 MG PO (20:52)
[2017-11-06] MEDS ORDERED: CITALOPRAM HBR20 MG PO (20:52)
[2017-11-06] MEDS ORDERED: TRAMADOL HCL50 MG PO (20:53)
[2017-11-06] MEDS ORDERED: IBUPROFEN600 MG PO (20:54)
[2017-11-06 21:13] LABS: ALBUMIN 3.4 g/dL (3.2-4.8)
[2017-11-06 21:16] LABS: TOTAL PROTEIN 5.7 g/dL (6.4-8.3)
[2017-11-06 21:18] LABS: TOTAL BILIRUBIN 0.5 mg/dL (0.0-1.0)
[2017-11-06 21:19] LABS: ALKALINE PHOSPHATASE 193 IU/L (3-129)
[2017-11-06 21:21] LABS: AST (GOT) 72 IU/L (2-34); DIRECT BILIRUBIN 0.3 mg/dL (0.0-0.3)
[2017-11-06 21:22] LABS: ALT (GPT) 64 IU/L (3-49)
[2017-11-06 21:38] LABS: BENZODIAZEPINES, URINE SCREEN Negative (200 ng/mL)
[2017-11-07 01:15] LABS: TROP-I INTERPRETATION NEGATIVE; TROPONIN-I < 0.01 ng/mL (0.0-0.30)
[2017-11-07 01:59] VITALS: BP 140/80
[2017-11-07 03:49] VITALS: BP 154/78
[2017-11-07 03:49] LABS: BENZODIAZEPINES, URINE SCREEN POSITIVE (200 ng/mL)
[2017-11-07 06:45] LABS: BASOPHIL (%) 1.2 % (0-1); BASOPHIL COUNT 0.1 K/uL (0-0.1); EOSINOPHIL (%) 6.3 % (0-5); EOSINOPHIL COUNT 0.3 K/uL (0-0.3); HEMATOCRIT 31.4 % (38.0-50.0); HEMOGLOBIN 10.5 G/DL (12.5-16.6); IMMATURE GRANULOCYTE (%) 0.2 % (0.0-0.7); LYMPHOCYTE (%) 18.1 % (15-42); LYMPHOCYTE COUNT 0.8 K/uL (1.0-2.8); MCH 33.9 PG (29.0-34.0); MCHC 33.4 G/DL (30.0-36.0); MCV 101.3 FL (86-99); MONOCYTE (%) 13.6 % (3-12); MONOCYTE COUNT 0.6 K/uL (0-0.8); NEUTROPHIL (%) 60.6 % (45-76); NEUTROPHIL COUNT 2.6 K/uL (1.8-6.4); PLATELET COUNT 280 K/uL (156-360); RBC DIS.WIDTH-CV 13.6 % (11.8-14.6); RBC DIS.WIDTH-SD 50.4 % (39-53); WHITE BLOOD COUNT 4.3 K/uL (4.1-10.2)
[2017-11-07 07:07] LABS: CHLORIDE 102 MEQ/L (99-109); CREATININE 0.8 MG/DL (0.6-1.3); GFR ESTIMATE (CALCULATED) > 59 mL/min/ (58.99-99999); GLUCOSE 87 mg/dL (70-99); POTASSIUM 4.4 MEQ/L (3.7-5.4); TROP-I INTERPRETATION NEGATIVE; TROPONIN-I < 0.01 ng/mL (0.0-0.30); UREA NITROGEN (BUN) 10 mg/dL (9-23)
[2017-11-07 07:12] LABS: SODIUM 140 MEQ/L (136-147)
[2017-11-07 08:05] VITALS: BP 166/90
[2017-11-07 08:33] LABS: ALBUMIN 3.1 G/DL (3.2-4.8); ALKALINE PHOSPHATASE 143 IU/L (3-129); ALT (GPT) 42 IU/L (3-49); DIRECT BILIRUBIN 0.2 mg/dL (0.0-0.3)
[2017-11-07 08:35] LABS: AST (GOT) 33 IU/L (2-34); TOTAL BILIRUBIN 0.7 MG/DL (0.0-1.0); TOTAL PROTEIN 5.2 G/DL (6.4-8.3)
[2017-11-07 15:58] VITALS: BP 133/83
[2017-11-07 19:37] VITALS: BP 133/82
[2017-11-07 23:45] VITALS: BP 132/76
[2017-11-08 04:13] VITALS: BP 132/83
[2017-11-08 05:59] LABS: EOSINOPHIL (%) 8.1 % (0-5); EOSINOPHIL COUNT 0.3 K/uL (0-0.3); HEMATOCRIT 35.4 % (38.0-50.0); HEMOGLOBIN 11.4 G/DL (12.5-16.6); IMMATURE GRANULOCYTE (%) 0.2 % (0.0-0.7); LYMPHOCYTE (%) 20.7 % (15-42); LYMPHOCYTE COUNT 0.9 K/uL (1.0-2.8); MCH 32.9 PG (29.0-34.0); MCHC 32.2 G/DL (30.0-36.0); MCV 102.3 FL (86-99); MONOCYTE (%) 13.8 % (3-12); MONOCYTE COUNT 0.6 K/uL (0-0.8); NEUTROPHIL (%) 56.2 % (45-76); NEUTROPHIL COUNT 2.4 K/uL (1.8-6.4); PLATELET COUNT 271 K/uL (156-360); RBC DIS.WIDTH-CV 13.4 % (11.8-14.6); RBC DIS.WIDTH-SD 50.9 % (39-53); RED BLOOD COUNT 3.46 M/uL (4.00-5.50); WHITE BLOOD COUNT 4.2 K/uL (4.1-10.2)
[2017-11-08 06:25] LABS: CHLORIDE 104 MEQ/L (99-109); CREATININE 0.9 MG/DL (0.6-1.3); GFR ESTIMATE (CALCULATED) > 59 mL/min/ (58.99-99999); GLUCOSE 92 mg/dL (70-99); POTASSIUM 4.3 MEQ/L (3.7-5.4); SODIUM 135 MEQ/L (136-147); UREA NITROGEN (BUN) 10 mg/dL (9-23)
[2017-11-08 07:49] VITALS: BP 134/75
[2017-11-08] MEDS ORDERED: AZITHROMYCIN500 M1 PO (11:56)
[2017-11-08] MEDS ORDERED: AUGMENTIN875 MG PO (11:57)
[2017-11-08] MEDS ORDERED: Thiamine,Vitamin B1 PO (12:00)
[2017-11-08 12:12] VITALS: BP 161/96
== END 2017-11-08 13:32 | disposition home or self-care (01) | DRG 178 ==
LOC: EME 17:33 → EDOF 11-07 00:20 → 5SOUTH 11-07 00:20 → ENRESERV 11-07 00:21 → 5SOUTH 11-07 01:48 → ENPENDDIS 11-08 12:51 → 5SOUTH 11-08 13:32
PROVIDERS: Hospitalist; Physician Assistant; Physician Assistant Medical
DX: J69.0 Pneumonitis due to inhalation of food and vomit (principal); E87.1 Hypo-osmolality and hyponatremia; F10.229 Alcohol dependence with intoxication, unspecified; Y90.6 Blood alcohol level of 120-199 mg/100 ml; R55 Syncope and collapse; J90 Pleural effusion, not elsewhere classified; I48.0 Paroxysmal atrial fibrillation; G93.89 Other specified disorders of brain; I10 Essential (primary) hypertension; E03.9 Hypothyroidism, unspecified; K73.9 Chronic hepatitis, unspecified; D53.9 Nutritional anemia, unspecified; E55.9 Vitamin D deficiency, unspecified; E66.9 Obesity, unspecified; Z68.31 Body mass index [BMI] 31.0-31.9, adult; K21.9 Gastro-esophageal reflux disease without esophagitis; F32.9 Major depressive disorder, single episode, unspecified; F41.9 Anxiety disorder, unspecified; Z86.711 Personal history of pulmonary embolism; Z86.73 Personal history of transient ischemic attack (TIA), and cerebral infarction without residual deficits; Z91.19 Patient's noncompliance with other medical treatment and regimen; Z79.899 Other long term (current) drug therapy; Z91.81 History of falling; Z80.0 Family history of malignant neoplasm of digestive organs; Z82.5 Family history of asthma and other chronic lower respiratory diseases
CPT/HCPCS: 70450; 70551; 71046; 71275; 78227; 80048; 80076; 80306 90; 81003; 82436; 83605; 83735; 83930; 84133; 84300; 84484; 84999; 85025; 85027; 87040; 87070; 87205; 87641; 93005; 94799; 95819; 99202; 99281; 99285; A9537; G0480; J0295; J0456; J2543; J2805; J3370; J7030; J7050

== ENCOUNTER 2017-11-24 18:57 | Emergency (ER) | payer OTHER ==
[~2017-11-24] VITALS: Ht 172.7 cm; Wt 104.5 kg
[~2017-11-24 18:57] MED LIST changes: +AUGMENTIN875 MG PO; +AZITHROMYCIN500 M1 PO; +GABAPENTIN300 MG PO; +TRAMADOL HCL50 MG PO
[2017-11-24 21:57] LABS: HEMATOCRIT 39.3 % (38.0-50.0); HEMOGLOBIN 13.6 G/DL (12.5-16.6); MCH 34.3 PG (29.0-34.0); MCHC 34.6 G/DL (30.0-36.0); MCV 99.2 FL (86-99); PLATELET COUNT 223 K/uL (156-360); RBC DIS.WIDTH-CV 13.7 % (11.8-14.6); RED BLOOD COUNT 3.96 M/uL (4.00-5.50); WHITE BLOOD COUNT 5.1 K/uL (4.1-10.2)
[2017-11-24 21:58] LABS: CHLORIDE 107 mEq/L (99-109); POTASSIUM 4.3 mEq/L (3.7-5.4); SODIUM 144 mEq/L (136-147)
[2017-11-24 22:00] LABS: GLUCOSE 83 mg/dL (70-99)
[2017-11-24 22:03] LABS: SERUM ETHYL ALCOHOL 327 mg/dL
[2017-11-24 22:04] LABS: CREATININE 0.8 mg/dL (0.6-1.3); GFR ESTIMATE (CALCULATED) > 59 mL/min/ (58.99-99999)
[2017-11-24 22:06] LABS: UREA NITROGEN (BUN) 10 mg/dL (9-23)
[2017-11-24 22:07] LABS: SALICYLATE < 5.0 MG/DL (15-30)
[2017-11-24 22:08] LABS: ACETAMINOPHEN (TYLENOL) < 10 mcg/mL (10-30)
[2017-11-25 00:11] LABS: AMPHETAMINE NEGATIVE (500 ng/mL); BARBITURATES NEGATIVE (200 ng/mL); BENZODIAZEPINES PRESUMPTIVE POSITIVE (150 ng/mL); BUPRENORPHINE NEGATIVE (10 ng/mL); COCAINE NEGATIVE (150 ng/mL); METHADONE NEGATIVE (200 ng/mL); METHAMPHETAMINE NEGATIVE (500 ng/mL); OPIATES (MORPHINE) NEGATIVE (100 ng/mL); OXYCODONE NEGATIVE (100 ng/mL); PHENCYCLIDINE NEGATIVE (25 ng/mL); PROPOXYPHENE NEGATIVE (300 ng/mL); THC CANNABINOIDS NEGATIVE (50 ng/mL); TRICYCLIC ANTIDEPRESSANTS NEGATIVE (300 ng/mL)
[2017-11-25 00:54] LABS: BENZODIAZEPINES, URINE SCREEN POSITIVE (200 ng/mL)
[2017-11-25 05:31] VITALS: BP 119/85
== END 2017-11-25 05:50 | disposition home or self-care (01) ==
LOC: EME 18:57
PROVIDERS: Emergency Medicine
DX: F10.129 Alcohol abuse with intoxication, unspecified (principal); F32.9 Major depressive disorder, single episode, unspecified; E03.9 Hypothyroidism, unspecified; K21.9 Gastro-esophageal reflux disease without esophagitis; I10 Essential (primary) hypertension; F41.9 Anxiety disorder, unspecified; Y90.8 Blood alcohol level of 240 mg/100 ml or more; Z79.891 Long term (current) use of opiate analgesic; Z86.73 Personal history of transient ischemic attack (TIA), and cerebral infarction without residual deficits; Z85.9 Personal history of malignant neoplasm, unspecified; Z98.890 Other specified postprocedural states; J30.1 Allergic rhinitis due to pollen
CPT/HCPCS: 80048; 84999; 85027; G0480

== ENCOUNTER 2017-12-03 12:02 | Emergency (ER) | payer OTHER ==
[~2017-12-03] VITALS: Ht 177.8 cm; Wt 96.3 kg
[2017-12-03 16:48] VITALS: BP 134/73
== END 2017-12-03 16:49 | disposition home or self-care (01) ==
LOC: EME 12:02
DX: F10.229 Alcohol dependence with intoxication, unspecified (principal); Z91.81 History of falling; I10 Essential (primary) hypertension; K21.9 Gastro-esophageal reflux disease without esophagitis; R56.9 Unspecified convulsions; Z86.73 Personal history of transient ischemic attack (TIA), and cerebral infarction without residual deficits; E03.9 Hypothyroidism, unspecified; F41.9 Anxiety disorder, unspecified
CPT/HCPCS: 99281; 99283; G0480

== ENCOUNTER 2018-02-13 11:24 | Emergency (ER) | payer OTHER ==
[~2018-02-13] VITALS: Ht 177.8 cm; Wt 102.6 kg
[2018-02-13 12:41] LABS: BASOPHIL COUNT 0.1 K/uL (0-0.1); EOSINOPHIL (%) 6.3 % (0-5); EOSINOPHIL COUNT 0.4 K/uL (0-0.3); HEMATOCRIT 34.9 % (38.0-50.0); IMMATURE GRANULOCYTE (%) 0.3 % (0.0-0.7); LYMPHOCYTE (%) 29.9 % (15-42); LYMPHOCYTE COUNT 1.8 K/uL (1.0-2.8); MCHC 34.4 G/DL (30.0-36.0); MCV 95.9 FL (86-99); MONOCYTE COUNT 0.5 K/uL (0-0.8); NEUTROPHIL (%) 54.5 % (45-76); NEUTROPHIL COUNT 3.3 K/uL (1.8-6.4); PLATELET COUNT 219 K/uL (156-360); RBC DIS.WIDTH-CV 12.3 % (11.8-14.6); RED BLOOD COUNT 3.64 M/uL (4.00-5.50)
[2018-02-13 12:53] LABS: CHLORIDE 105 mEq/L (99-109); POTASSIUM 3.9 mEq/L (3.7-5.4); SODIUM 137 mEq/L (136-147)
[2018-02-13 12:55] LABS: GLUCOSE 95 mg/dL (70-99)
[2018-02-13 12:58] LABS: SERUM ETHYL ALCOHOL 296 mg/dL
[2018-02-13 12:59] LABS: CREATININE 0.8 mg/dL (0.6-1.3); GFR ESTIMATE (CALCULATED) > 59 mL/min/ (58.99-99999)
[2018-02-13 13:00] LABS: UREA NITROGEN (BUN) 14 mg/dL (9-23)
[2018-02-13 19:07] VITALS: BP 125/80
== END 2018-02-13 19:10 | disposition home or self-care (01) ==
LOC: EME 11:24
PROVIDERS: Emergency Medicine
DX: F10.229 Alcohol dependence with intoxication, unspecified (principal); Y90.8 Blood alcohol level of 240 mg/100 ml or more; I10 Essential (primary) hypertension; K21.9 Gastro-esophageal reflux disease without esophagitis; R56.9 Unspecified convulsions; E03.9 Hypothyroidism, unspecified; F41.9 Anxiety disorder, unspecified; Z59.0 Homelessness; Z86.73 Personal history of transient ischemic attack (TIA), and cerebral infarction without residual deficits
CPT/HCPCS: 70450; 80048; 85025; 99281; 99284; G0480

== ENCOUNTER 2018-03-01 11:31 | Emergency (ER) | payer OTHER ==
[~2018-03-01] VITALS: Ht 177.8 cm; Wt 104.5 kg
[2018-03-01 14:48] VITALS: BP 122/81
== END 2018-03-01 14:49 | disposition home or self-care (01) ==
LOC: EME 11:31
DX: M25.561 Pain in right knee (principal); M25.562 Pain in left knee; F10.129 Alcohol abuse with intoxication, unspecified; I10 Essential (primary) hypertension; E03.9 Hypothyroidism, unspecified; Z86.73 Personal history of transient ischemic attack (TIA), and cerebral infarction without residual deficits
CPT/HCPCS: 99281; 99283

== ENCOUNTER 2018-03-12 18:07 | Emergency (ER) | payer OTHER ==
[~2018-03-12] VITALS: Ht 177.8 cm; Wt 99.4 kg
[2018-03-12 18:48] LABS: BASOPHIL COUNT 0.1 K/uL (0-0.1); EOSINOPHIL (%) 1.2 % (0-5); EOSINOPHIL COUNT 0.1 K/uL (0-0.3); HEMATOCRIT 43.4 % (38.0-50.0); HEMOGLOBIN 15.3 G/DL (12.5-16.6); LYMPHOCYTE (%) 23.4 % (15-42); LYMPHOCYTE COUNT 1.2 K/uL (1.0-2.8); MCH 33.6 PG (29.0-34.0); MCHC 35.3 G/DL (30.0-36.0); MCV 95.2 FL (86-99); MONOCYTE (%) 9.5 % (3-12); MONOCYTE COUNT 0.5 K/uL (0-0.8); NEUTROPHIL (%) 63.9 % (45-76); NEUTROPHIL COUNT 3.3 K/uL (1.8-6.4); PLATELET COUNT 229 K/uL (156-360); RBC DIS.WIDTH-CV 13.2 % (11.8-14.6); RBC DIS.WIDTH-SD 46.7 % (39-53); RED BLOOD COUNT 4.56 M/uL (4.00-5.50); WHITE BLOOD COUNT 5.2 K/uL (4.1-10.2)
[2018-03-12] MEDS ORDERED: CARDIZEM CD,CA240 MG PO (19:10)
[2018-03-12] MEDS ORDERED: CITALOPRAM HBR20 MG PO (19:10)
[2018-03-12 19:11] LABS: TROP-I INTERPRETATION NEGATIVE; TROPONIN-I 0.01 ng/mL (0.0-0.30)
[2018-03-12] MEDS ORDERED: LEVOTHYROXINE100 MCG PO (19:11)
[2018-03-12] MEDS ORDERED: CETIRIZINE HCL10 M2 PO (19:11)
[2018-03-12] MEDS ORDERED: METOPROLOL SUCC25 MG PO (19:11)
[2018-03-12] MEDS ORDERED: ZOLPIDEM TARTRA10 MG PO (19:12)
[2018-03-12] MEDS ORDERED: FLONASE ALLERG9.9 ML BOTH NARES (19:12)
[2018-03-12] MEDS ORDERED: GABAPENTIN300 MG PO (19:13)
[2018-03-12 19:33] LABS: ALBUMIN 4.2 g/dL (3.2-4.8); CHLORIDE 98 mEq/L (99-109); SODIUM 137 mEq/L (136-147)
[2018-03-12 19:34] LABS: MAGNESIUM 2.3 mg/dL (1.3-2.7)
[2018-03-12 19:36] LABS: GLUCOSE 137 mg/dL (70-99); TOTAL PROTEIN 7.2 g/dL (6.4-8.3)
[2018-03-12 19:38] LABS: TOTAL BILIRUBIN 1.4 mg/dL (0.0-1.0)
[2018-03-12 19:39] LABS: ALKALINE PHOSPHATASE 98 IU/L (3-129); SERUM ETHYL ALCOHOL 295 mg/dL
[2018-03-12 19:40] LABS: CREATININE 0.9 mg/dL (0.6-1.3); GFR ESTIMATE (CALCULATED) > 59 mL/min/ (58.99-99999)
[2018-03-12 19:41] LABS: AST (GOT) 85 IU/L (2-34); UREA NITROGEN (BUN) 14 mg/dL (9-23)
[2018-03-12 19:43] LABS: ALT (GPT) 65 IU/L (3-49)
[2018-03-12 20:35] LABS: APPEARANCE CLEAR ((CLEAR)); BILIRUBIN NEGATIVE; BLOOD NEGATIVE; COLOR YELLOW ((YELLOW)); GLUCOSE (STRIP) NEGATIVE; KETONES 5; LEUKOCYTES NEGATIVE; NITRITE NEGATIVE; PROTEIN (STRIP) NEGATIVE; SPECIFIC GRAVITY 1.006 (1.000-1.030); UCUL ADDED? NO; UROBILINOGEN 0.2 MG/DL (0.2-1.0)
[2018-03-12 23:53] VITALS: BP 143/89
== END 2018-03-13 | disposition home or self-care (01) ==
LOC: EME 18:07
PROVIDERS: Emergency Medicine
DX: R51 Headache (principal); I48.91 Unspecified atrial fibrillation; F10.129 Alcohol abuse with intoxication, unspecified; Y90.8 Blood alcohol level of 240 mg/100 ml or more; I10 Essential (primary) hypertension; K21.9 Gastro-esophageal reflux disease without esophagitis; E03.9 Hypothyroidism, unspecified; F41.9 Anxiety disorder, unspecified; Z86.73 Personal history of transient ischemic attack (TIA), and cerebral infarction without residual deficits
CPT/HCPCS: 70450; 71275; 80053; 81003; 83735; 84484; 85025; 93005; 99281; 99285; G0480; J7030

== ENCOUNTER 2018-04-02 14:12 | Emergency (ER) | payer OTHER ==
[~2018-04-02] VITALS: Ht 177.8 cm; Wt 96.3 kg
[~2018-04-02 14:12] MED LIST changes: +FLONASE ALLERG9.9 ML BOTH NARES; +ZOLPIDEM TARTRA10 MG PO
[2018-04-02 15:14] LABS: BASOPHIL (%) 0.7 % (0-1); BASOPHIL COUNT 0.1 K/uL (0-0.1); EOSINOPHIL (%) 1.4 % (0-5); EOSINOPHIL COUNT 0.1 K/uL (0-0.3); HEMATOCRIT 34.4 % (38.0-50.0); HEMOGLOBIN 11.9 G/DL (12.5-16.6); IMMATURE GRANULOCYTE (%) 0.3 % (0.0-0.7); LYMPHOCYTE (%) 8.3 % (15-42); LYMPHOCYTE COUNT 0.8 K/uL (1.0-2.8); MCH 33.4 PG (29.0-34.0); MCHC 34.6 G/DL (30.0-36.0); MCV 96.6 FL (86-99); MONOCYTE COUNT 0.6 K/uL (0-0.8); NEUTROPHIL (%) 83.3 % (45-76); NEUTROPHIL COUNT 7.7 K/uL (1.8-6.4); PLATELET COUNT 239 K/uL (156-360); RBC DIS.WIDTH-CV 13.9 % (11.8-14.6); RBC DIS.WIDTH-SD 49.7 % (39-53); RED BLOOD COUNT 3.56 M/uL (4.00-5.50); WHITE BLOOD COUNT 9.2 K/uL (4.1-10.2)
[2018-04-02 15:26] LABS: ALBUMIN 3.7 g/dL (3.2-4.8)
[2018-04-02 15:27] LABS: CHLORIDE 106 mEq/L (99-109); POTASSIUM 4.1 mEq/L (3.7-5.4); SODIUM 139 mEq/L (136-147)
[2018-04-02 15:29] LABS: GLUCOSE 76 mg/dL (70-99); TOTAL PROTEIN 6.1 g/dL (6.4-8.3)
[2018-04-02 15:31] LABS: TOTAL BILIRUBIN 0.8 mg/dL (0.0-1.0)
[2018-04-02 15:32] LABS: SERUM ETHYL ALCOHOL 183 mg/dL
[2018-04-02 15:33] LABS: ALKALINE PHOSPHATASE 83 IU/L (3-129); CREATININE 1.3 mg/dL (0.6-1.3); GFR ESTIMATE (CALCULATED) > 59 mL/min/ (58.99-99999)
[2018-04-02 15:34] LABS: AST (GOT) 48 IU/L (2-34)
[2018-04-02 15:35] LABS: UREA NITROGEN (BUN) 12 mg/dL (9-23)
[2018-04-02 15:36] LABS: SALICYLATE < 5.0 MG/DL (15-30)
[2018-04-02 15:37] LABS: ACETAMINOPHEN (TYLENOL) 37 mcg/mL (10-30); ALT (GPT) 47 IU/L (3-49)
[2018-04-02 16:26] LABS: APPEARANCE CLEAR ((CLEAR)); BILIRUBIN NEGATIVE; BLOOD NEGATIVE; COLOR YELLOW ((YELLOW)); GLUCOSE (STRIP) NEGATIVE; KETONES NEGATIVE; LEUKOCYTES NEGATIVE; NITRITE NEGATIVE; PROTEIN (STRIP) NEGATIVE; UCUL ADDED? NO; UROBILINOGEN 0.2 MG/DL (0.2-1.0)
[2018-04-02 16:37] LABS: AMPHETAMINE NEGATIVE (500 ng/mL); BARBITURATES NEGATIVE (200 ng/mL); BENZODIAZEPINES NEGATIVE (150 ng/mL); BUPRENORPHINE NEGATIVE (10 ng/mL); COCAINE NEGATIVE (150 ng/mL); METHADONE NEGATIVE (200 ng/mL); METHAMPHETAMINE NEGATIVE (500 ng/mL); OPIATES (MORPHINE) NEGATIVE (100 ng/mL); OXYCODONE NEGATIVE (100 ng/mL); PHENCYCLIDINE NEGATIVE (25 ng/mL); PROPOXYPHENE NEGATIVE (300 ng/mL); THC CANNABINOIDS NEGATIVE (50 ng/mL); TRICYCLIC ANTIDEPRESSANTS PRESUMPTIVE POSITIVE (300 ng/mL)
[2018-04-02 20:27] VITALS: BP 150/76
== END 2018-04-02 20:28 | disposition home or self-care (01) ==
LOC: EME 14:12
PROVIDERS: Emergency Medicine
DX: F10.129 Alcohol abuse with intoxication, unspecified (principal); T39.1X1A Poisoning by 4-Aminophenol derivatives, accidental (unintentional), initial encounter; Y90.6 Blood alcohol level of 120-199 mg/100 ml; I10 Essential (primary) hypertension; K21.9 Gastro-esophageal reflux disease without esophagitis; R56.9 Unspecified convulsions; J30.1 Allergic rhinitis due to pollen; F41.9 Anxiety disorder, unspecified; Z86.73 Personal history of transient ischemic attack (TIA), and cerebral infarction without residual deficits; Z85.9 Personal history of malignant neoplasm, unspecified
CPT/HCPCS: 80053; 81003; 85025; 99281; 99284; G0480; J7040; J7120

== ENCOUNTER 2018-04-20 17:41 | Emergency (ER) | payer OTHER ==
[~2018-04-20] VITALS: Ht 177.8 cm; Wt 99.7 kg
[2018-04-20 18:56] LABS: MCHC 34.4 G/DL (30.0-36.0); MCV 98.8 FL (86-99); PLATELET COUNT 188 K/uL (156-360); RBC DIS.WIDTH-CV 14.1 % (11.8-14.6); RBC DIS.WIDTH-SD 51.6 % (39-53); RED BLOOD COUNT 3.24 M/uL (4.00-5.50); WHITE BLOOD COUNT 6.3 K/uL (4.1-10.2)
[2018-04-20 19:06] LABS: CHLORIDE 100 mEq/L (99-109); POTASSIUM 4.1 mEq/L (3.7-5.4); SODIUM 131 mEq/L (136-147)
[2018-04-20 19:08] LABS: GLUCOSE 90 mg/dL (70-99)
[2018-04-20 19:11] LABS: SERUM ETHYL ALCOHOL 311 mg/dL
[2018-04-20 19:12] LABS: CREATININE 0.9 mg/dL (0.6-1.3); GFR ESTIMATE (CALCULATED) > 59 mL/min/ (58.99-99999)
[2018-04-20 19:13] LABS: UREA NITROGEN (BUN) 15 mg/dL (9-23)
[2018-04-20 19:19] LABS: TROP-I INTERPRETATION NEGATIVE; TROPONIN-I < 0.01 ng/mL (0.0-0.30)
[2018-04-20 22:17] VITALS: BP 111/65
== END 2018-04-20 22:18 | disposition home or self-care (01) ==
LOC: EME 17:41
PROVIDERS: Emergency Medicine
DX: F10.129 Alcohol abuse with intoxication, unspecified (principal); Y90.8 Blood alcohol level of 240 mg/100 ml or more; K21.9 Gastro-esophageal reflux disease without esophagitis; I10 Essential (primary) hypertension; E03.9 Hypothyroidism, unspecified; R56.9 Unspecified convulsions; F41.9 Anxiety disorder, unspecified; Z86.73 Personal history of transient ischemic attack (TIA), and cerebral infarction without residual deficits
CPT/HCPCS: 71045; 80048; 84484; 85027; 93005; 99281; 99285; G0480

== ENCOUNTER 2018-04-21 15:19 | Emergency (ER) | payer OTHER ==
[~2018-04-21] VITALS: Ht 177.8 cm; Wt 100.0 kg
[2018-04-21 16:31] LABS: HEMATOCRIT 33.8 % (38.0-50.0); HEMOGLOBIN 11.6 G/DL (12.5-16.6); MCH 33.7 PG (29.0-34.0); MCHC 34.3 G/DL (30.0-36.0); MCV 98.3 FL (86-99); PLATELET COUNT 208 K/uL (156-360); RBC DIS.WIDTH-CV 14.6 % (11.8-14.6); RBC DIS.WIDTH-SD 52.8 % (39-53); RED BLOOD COUNT 3.44 M/uL (4.00-5.50); WHITE BLOOD COUNT 5.1 K/uL (4.1-10.2)
[2018-04-21 16:40] LABS: ALBUMIN 3.8 g/dL (3.2-4.8); CHLORIDE 106 mEq/L (99-109); POTASSIUM 3.9 mEq/L (3.7-5.4); SODIUM 137 mEq/L (136-147)
[2018-04-21 16:42] LABS: GLUCOSE 88 mg/dL (70-99); TOTAL PROTEIN 6.3 g/dL (6.4-8.3)
[2018-04-21 16:44] LABS: TOTAL BILIRUBIN 0.6 mg/dL (0.0-1.0)
[2018-04-21 16:45] LABS: SERUM ETHYL ALCOHOL 367 mg/dL
[2018-04-21 16:46] LABS: ALKALINE PHOSPHATASE 119 IU/L (3-129); CREATININE 0.8 mg/dL (0.6-1.3); GFR ESTIMATE (CALCULATED) > 59 mL/min/ (58.99-99999)
[2018-04-21 16:47] LABS: AST (GOT) 71 IU/L (2-34); UREA NITROGEN (BUN) 11 mg/dL (9-23)
[2018-04-21 16:49] LABS: ALT (GPT) 69 IU/L (3-49)
[2018-04-21 20:33] LABS: AMPHETAMINE NEGATIVE (500 ng/mL); BARBITURATES NEGATIVE (200 ng/mL); BENZODIAZEPINES NEGATIVE (150 ng/mL); BUPRENORPHINE NEGATIVE (10 ng/mL); COCAINE NEGATIVE (150 ng/mL); METHADONE NEGATIVE (200 ng/mL); METHAMPHETAMINE NEGATIVE (500 ng/mL); OPIATES (MORPHINE) NEGATIVE (100 ng/mL); OXYCODONE PRESUMPTIVE POSITIVE (100 ng/mL); PHENCYCLIDINE NEGATIVE (25 ng/mL); PROPOXYPHENE NEGATIVE (300 ng/mL); THC CANNABINOIDS NEGATIVE (50 ng/mL); TRICYCLIC ANTIDEPRESSANTS NEGATIVE (300 ng/mL)
[2018-04-22 03:45] VITALS: BP 132/63
== END 2018-04-22 03:45 | disposition home or self-care (01) ==
LOC: EME 15:19
PROVIDERS: Physician Assistant
DX: F10.20 Alcohol dependence, uncomplicated (principal); F32.9 Major depressive disorder, single episode, unspecified; F41.9 Anxiety disorder, unspecified; Y90.8 Blood alcohol level of 240 mg/100 ml or more; I10 Essential (primary) hypertension; K21.9 Gastro-esophageal reflux disease without esophagitis; Z86.73 Personal history of transient ischemic attack (TIA), and cerebral infarction without residual deficits; E03.9 Hypothyroidism, unspecified; Z86.69 Personal history of other diseases of the nervous system and sense organs
CPT/HCPCS: 80053; 85027; 90839; 99281; 99284; G0480